=== PATIENT | male | born 1945 | race Native Hawaiian/Other Pacific Islander ===

== ENCOUNTER 2016-07-23 20:12 | Inpatient (IN) | payer OTHER ==
[2016-07-23 20:18] VITALS: BP 173/82; PULSE 71; RESP 16; TEMP 98.2; O2SAT 99
[2016-07-23] MEDS ORDERED: SODIUM CHLORIDE 0.9% FLUSH 5 ML FLUSH IV FLUSH PRN (21:00)
[2016-07-23] MEDS ORDERED: CLOP75TA PO (21:04)
[2016-07-23] MEDS ORDERED: DONE10TA7 PO (21:04)
[2016-07-23] MEDS ORDERED: BISO5TAB5 PO (21:04)
[2016-07-23] MEDS ORDERED: ATOR20TA15 PO (21:04)
[2016-07-23] MEDS ORDERED: METF500T PO (21:04)
[2016-07-23] MEDS ORDERED: TAMS0.4C4 PO (21:04)
[2016-07-23] MEDS ORDERED: DOXA1TAB34 PO (21:04)
[2016-07-23] MEDS ORDERED: MEMA1TAB2 PO (21:04)
[2016-07-23 21:22] LABS: AUTOMATED NEUTROPHIL # 2.7 TH/MM3 (1.8-7.7); BASOPHIL # 0.1 TH/MM3 (0-0.2); BASOPHIL % 1.1 % (0.0-2.0); EOSINOPHIL # 0.2 TH/MM3 (0-0.4); HEMATOCRIT 39.2 % (39.0-51.0); HEMO FLAGS DIFF FINAL; LYMPH % 28.8 % (9.0-44.0); LYMPHOCYTE # 1.4 TH/MM3 (1.0-4.8); MEAN CELL VOLUME 84.1 FL (80.0-100.0); MEAN CORPUSCULAR HEMOGLOBIN 27.5 PG (27.0-34.0); MEAN CORPUSCULAR HGB CONC 32.7 % (32.0-36.0); MONO % 8.9 % (0.0-8.0); NEUT % 57.2 % (16.0-70.0); PLATELET COUNT 178 TH/MM3 (150-450); RED BLOOD COUNT 4.66 MIL/MM3 (4.50-5.90); RED CELL DISTRIBUTION WIDTH 14.8 % (11.6-17.2); WHITE BLOOD COUNT 4.8 TH/MM3 (4.0-11.0)
--- NOTE | 2016-07-23 21:22 | RADRPT ---
EXAM DATE/TIME: 07/23/2016 21:05 [facility] COMPARISON: No previous studies available for comparison. INDICATIONS : Altered mental status. RADIATION DOSE: 56.35 CTDIvol (mGy) MEDICAL HISTORY : Non-responsive. SURGICAL HISTORY : Non-responsive. ENCOUNTER: Initial ACUITY: 1 day PAIN SCALE: Non-responsive LOCATION: cranial TECHNIQUE: Multiple contiguous axial images were obtained of the head. Using automated exposure control and adj ustment of the mA and/or kV according to patient size, radiation dose was kept as low as reasonably a chievable to obtain optimal diagnostic quality images. FINDINGS: There is marked central and cortical atrophy with dilatation of ventricular and sulcal spaces. There is no parenchymal hemorrhage, acute infarction or mass lesion identified. There are no extra-axial fluid collections appreciated. The posterior fossa is unremarkable with midline fourth ventricle. T he portion of the orbits and paranasal sinuses visualized are unremarkable. CONCLUSION: 1. Cortical atrophy. Chronic white matter ischemic changes. Remote lacunar infarcts in the basal gang shira. Dallin Cordero MD on July 23, 2016 at 21:19 Board Certified Radiologist. This report was verified electronically.
[2016-07-23 21:36] LABS: APTT (PATIENT) 21.2 SEC (24.3-30.1); PROTHROMBIN TIME - PATIENT 11.1 SEC (9.8-11.6)
[2016-07-23 21:48] LABS: ALT (GPT) 29 U/L (12-78); ANION GAP 8 MEQ/L (5-15); AST (GOT) 21 U/L (15-37); BICARBONATE 28.9 MEQ/L (21.0-32.0); BLOOD UREA NITROGEN 14 MG/DL (7-18); CHLORIDE 98 MEQ/L (98-107); GLOMERULAR FILTRATION RATE 60 ML/MIN (>89); SODIUM (NA) 135 MEQ/L (136-145)
[2016-07-23 21:57] LABS: ALKALINE PHOSPHATASE 105 U/L (45-117); TOTAL BILIRUBIN ADULT 0.4 MG/DL (0.2-1.0)
[2016-07-23 21:59] LABS: CREATINE KINASE 63 U/L (39-308)
[2016-07-23] MEDS ORDERED: SODIUM CHLORID 0.9% 500 ML INJ 500 ML IV ONE (22:00)
[2016-07-23 22:16] LABS: BLOOD, URINE NEG (NEG); GLUCOSE,URINE NEG (NEG); KETONE, URINE NEG (NEG); NITRITE,URINE NEG (NEG); PH, URINE 7.5 (5.0-8.5); SQUAMOUS EPITHELIAL CELL URINE <1 /hpf (0-5); URINE COLOR LIGHT-YELLOW (YELLW/STRAW)
[2016-07-23 22:17] LABS: COMMENT (UR) CATH-CULT NOT IND; CULTURE IF INDICATED CATH CULTURE NOT IND
--- NOTE | 2016-07-23 22:27 | RADRPT ---
EXAM DATE/TIME: 07/23/2016 21:13 [facility] COMPARISON: No previous studies available for comparison. INDICATIONS : Syncopal epiosode. MEDICAL HISTORY : None. SURGICAL HISTORY : None. ENCOUNTER: Initial ACUITY: 1 day PAIN SCORE: Non-responsive. LOCATION: chest FINDINGS: A single view of the chest demonstrates the lungs to be symmetrically aerated without evidence of mas s, infiltrate or effusion. The cardiomediastinal contours are unremarkable except tortuous aorta. O sseous structures are intact. CONCLUSION: 1. Tortuous aorta. No active disease. Dallin Cordero MD on July 23, 2016 at 22:25 Board Certified Radiologist. This report was verified electronically.
--- NOTE | 2016-07-23 23:08 | PD ---
HPI Chief Complaint: Neuro Symptoms/ Deficits Time Seen by Provider: 20:39 Travel History International Travel<30 days: No Contact w/Intl Traveler<30days: No Traveled to known affect area: No History of Present Illness HPI Patient is a 71-year-old male who is brought in by his friend due to altered mental status. Per friend, he has had slurred speech since last night as well as increasing memory difficulties for the past few days. Also reports some issues with walking and incontinence recently. He is Vietnamese only speaking, history is obtained through his friend and transport technician. He says he was not feeling well earlier today. He is unable to really express what was bothering him. He does deny any pain. He denies any headache. He denies any chest pain or shortness of breath. PFSH Past Medical History High Cholesterol: Yes Cerebrovascular Accident: Yes Dementia: Yes Diabetes: Yes Patient Takes Glucophage: Yes (07/23/16) Hypertension: Yes Influenza Vaccination: No Past Surgical History Coronary Stent: Yes Social History Alcohol Use: No Tobacco Use: No Substance Use: No Allergies-Medications (Allergen,Severity, Reaction): Coded Allergies: No Known Allergies (Unverified , 07/23/16) Reported Meds & Prescriptions Reported Meds & Active Scripts Active Reported Clopidogrel (Clopidogrel Bisulfate) 75 Mg Tab 75 Mg PO DAILY Atorvastatin (Atorvastatin Calcium) 20 Mg Tab 20 Mg PO HS Metformin (Metformin HCl) 500 Mg Tab 500 Mg PO BIDPC With meals Tamsulosin (Tamsulosin HCl) 0.4 Mg Cap 0.4 Mg PO HS Doxazosin (Doxazosin Mesylate) 4 Mg Tab 4 Mg PO DAILY Donepezil 10 Mg Tab 10 Mg PO HS Bisoprolol (Bisoprolol Fumarate) 5 Mg Tab 5 Mg PO DAILY Memantine 10 Mg Tab 10 Mg PO BID Review of Systems Except as stated in HPI: all other systems reviewed are Neg General / Constitutional: No: Fever, Chills HENT: No: Headaches, Lightheadedness Cardiovascular: No: Chest Pain or Discomfort Respiratory: No: Shortness of Breath Gastrointestinal: No: Nausea, Vomiting Musculoskeletal: No: Pain Skin: No Change in Pigmentation Neurologic: Positive: Change in Mentation, Slurred Speech Physical Exam Narrative GENERAL: Awake and alert, in no acute distress. SKIN: Focused skin assessment warm/dry. HEAD: Atraumatic. Normocephalic. EYES: Pupils equal and round. No scleral icterus. ENT: Mucous membranes pink and moist. NECK: Trachea midline. No JVD. CARDIOVASCULAR: Regular rate and rhythm. No murmur appreciated. RESPIRATORY: No accessory muscle use. Clear to auscultation. Breath sounds equal bilaterally. GASTROINTESTINAL: Abdomen soft, non-tender, nondistended. MUSCULOSKELETAL: No obvious deformities. No clubbing. No cyanosis. No edema. NEUROLOGICAL: Awake and alert. No obvious cranial nerve deficits. Motor grossly within normal limits. Speech is difficult to assess. PSYCHIATRIC: Appropriate mood and affect; insight and judgment normal. Data Data Last Documented VS Vital Signs Date Time Temp Pulse Resp B/P Pulse Ox O2 Delivery O2 Flow Rate FiO2 07/23/16 20:18 98.2 71 16 173/82 99 Room Air Orders Electrocardiogram (07/23/16 20:50) Ammonia (07/23/16 20:50) Complete Blood Count With Diff (07/23/16 20:50) Comprehensive Metabolic Panel (07/23/16 20:50) Creatine Kinase (Cpk) (07/23/16 20:50) Prothrombin Time / Inr (Pt) (07/23/16 20:50) Act Partial Throm Time (Ptt) (07/23/16 20:50) Troponin I (07/23/16 20:50) Thyroid Stimulating Hormone (07/23/16 20:50) Urinalysis - C+S If Indicated (07/23/16 20:50) Ua Includes Microscopic (07/23/16 20:50) Chest, Single Ap (07/23/16 20:50) Ct Brain W/O Iv Contrast(Rout) (07/23/16 20:50) Blood Glucose (07/23/16 20:50) Ecg Monitoring (07/23/16 20:50) Iv Access Insert/Monitor (07/23/16 20:50) Oximetry (07/23/16 20:50) Sodium Chloride 0.9% Flush (Ns Flush) (07/23/16 21:00) Sodium Chlorid 0.9% 500 Ml Inj (Ns 500 M (07/23/16 22:00) Admit Order (Ed Use Only) (07/23/16 ) Labs Laboratory Tests Test 07/23/16 07/23/16 21:00 21:40 White Blood Count 4.8 TH/MM3 Red Blood Count 4.66 MIL/MM3 Hemoglobin 12.8 GM/DL Hematocrit 39.2 % Mean Corpuscular Volume 84.1 FL Mean Corpuscular Hemoglobin 27.5 PG Mean Corpuscular Hemoglobin 32.7 % Concent Red Cell Distribution Width 14.8 % Platelet Count 178 TH/MM3 Mean Platelet Volume 8.8 FL Neutrophils (%) (Auto) 57.2 % Lymphocytes (%) (Auto) 28.8 % Monocytes (%) (Auto) 8.9 % Eosinophils (%) (Auto) 4.0 % Basophils (%) (Auto) 1.1 % Neutrophils # (Auto) 2.7 TH/MM3 Lymphocytes # (Auto) 1.4 TH/MM3 Monocytes # (Auto) 0.4 TH/MM3 Eosinophils # (Auto) 0.2 TH/MM3 Basophils # (Auto) 0.1 TH/MM3 CBC Comment DIFF FINAL Differential Comment Prothrombin Time 11.1 SEC Prothromb Time International 1.0 RATIO Ratio Activated Partial 21.2 SEC Thromboplast Time Sodium Level 135 MEQ/L Potassium Level 4.0 MEQ/L Chloride Level 98 MEQ/L Carbon Dioxide Level 28.9 MEQ/L Anion Gap 8 MEQ/L Blood Urea Nitrogen 14 MG/DL Creatinine 1.19 MG/DL Estimat Glomerular Filtration 60 ML/MIN Rate Random Glucose 140 MG/DL Calcium Level 10.2 MG/DL Total Bilirubin 0.4 MG/DL Aspartate Amino Transf 21 U/L (AST/SGOT) Alanine Aminotransferase 29 U/L (ALT/SGPT) Alkaline Phosphatase 105 U/L Ammonia 20 MCMOL/L Total Creatine Kinase 63 U/L Troponin I LESS THAN 0.02 NG/ML Total Protein 7.8 GM/DL Albumin 3.5 GM/DL Thyroid Stimulating Hormone 3.280 uIU/ML 3rd Gen Urine Color LIGHT-YELLOW Urine Turbidity CLEAR Urine pH 7.5 Urine Specific [place] 1.006 Urine Protein NEG mg/dL Urine Glucose (UA) NEG mg/dL Urine Ketones NEG mg/dL Urine Occult Blood NEG Urine Nitrite NEG Urine Bilirubin NEG Urine Urobilinogen LESS THAN 2.0 MG/DL Urine Leukocyte Esterase NEG Urine RBC LESS THAN 1 /hpf Urine Squamous Epithelial <1 /hpf Cells Microscopic Urinalysis Comment CATH-CULT NOT IND MDM Medical Decision Making Medical Screen Exam Complete: Yes Emergency Medical Condition: Yes Differential Diagnosis Sepsis versus stroke versus electrolyte abnormality versus dementia Narrative Course Patient is a 71-year-old male brought in by his friend due to concern for worsening mental status. He is oriented to person only. Exam shows no other acute abnormalities. IV established, labs sent. Labs show a calcium of 10.2, no other abnormalities. Patient given IV fluids. CT head shows evidence of prior strokes. No acute findings. Chest x-ray shows no evidence of pneumonia. Urinalysis is negative for UTI. Patient admitted for management of altered mental status, versus stroke. Diagnosis Primary Impression: Altered mental status Qualified Code: R41.82 - Altered mental status, unspecified altered mental status type Admitting Information Admitting Physician Requests: Admit Condition: Stable Esperanza Stahl MD Jul 23, 2016 23:08
[2016-07-23 23:59] VITALS: BP 175/87
[2016-07-24] VITALS (9 sets, daily range): BP systolic 119–175; BP diastolic 59–96; PULSE 63–70; RESP 16–19; TEMP 96.6–98.9; O2SAT 96–99
[2016-07-24] MEDS ORDERED: cloNIDine HCL 0.1 MG TAB PO PRN (00:30)
[2016-07-24] MEDS: INSULIN ASPART SUPPLEMENTAL SCALE SQ SCH ×4 (06:33→19:53)
[2016-07-24] MEDS: DOXAZOSIN MESYLATE 4 MG TAB PO SCH (08:39)
[2016-07-24] MEDS: BISOPROLOL FUMARATE 5 MG TAB PO SCH (08:39)
[2016-07-24] MEDS: MEMANTINE HCL 10 MG TAB PO SCH ×2 (08:39→19:53)
[2016-07-24] MEDS ORDERED: ASPIRIN 325 MG TAB PO SCH (09:00)
[2016-07-24] MEDS ORDERED: CLOPIDOGREL 75 MG TAB PO SCH (09:00)
--- NOTE | 2016-07-24 09:43 | RADRPT ---
EXAM DATE/TIME: 07/24/2016 08:52 [facility] COMPARISON: No previous studies available for comparison. INDICATIONS : Altered mental status. MEDICAL HISTORY : Hypertension. Diabetes mellitus type 2. SURGICAL HISTORY : None. ENCOUNTER: Initial ACUITY: 1 day PAIN SCORE: 0/10 LOCATION: Cranial TECHNIQUE: Multiplanar, multisequence MRI of the brain was performed without contrast. FINDINGS: There is marked central and cortical atrophy with dilatation of ventricular and sulcal spaces. There is no restricted diffusion. There are no extra-axial fluid collections appreciated. Marked pe riventricular white matter changes are noted with lacunar infarcts in the basal ganglia bilaterally. Ischemic changes extend into the posterior fossa where there is lacunar infarct in the cerebellar ped uncle on the right as well as the right brachium pontis. Cerebellar atrophy is noted as well. CONCLUSION: Marked central and cortical atrophy with periventricular white matter changes. There is no restricte d diffusion to suggest an acute ischemic event. There are multiple punctate areas of hemosiderin see n on the susceptibility weighted images. This can be seen with small old hemorrhagic lacunar infarct s as well as congophilic angiopathy. Federico Alexander MD FACR on July 24, 2016 at 9:25 Board Certified Radiologist. This report was verified electronically.
[2016-07-24 10:31] LABS: ANION GAP 11 MEQ/L (5-15); AST (GOT) 17 U/L (15-37); BLOOD UREA NITROGEN 12 MG/DL (7-18); CHLORIDE 104 MEQ/L (98-107); GLOMERULAR FILTRATION RATE 79 ML/MIN (>89); POTASSIUM 3.6 MEQ/L (3.5-5.1); SODIUM (NA) 140 MEQ/L (136-145)
[2016-07-24 10:58] LABS: ALKALINE PHOSPHATASE 100 U/L (45-117); ALT (GPT) 26 U/L (12-78); TOTAL BILIRUBIN ADULT 0.6 MG/DL (0.2-1.0)
--- NOTE | 2016-07-24 11:35 | RADRPT ---
EXAM DATE/TIME: 07/24/2016 09:54 [facility] COMPARISON: No previous studies available for comparison. INDICATIONS : Neuro deficits. MEDICAL HISTORY : Dementia. Hypercholesterolemia. Hypertension. CVA. Enlarged prostate. Diabetes. SURGICAL HISTORY : Coronary artery stent. Cataract surgery. ENCOUNTER: Initial ACUITY: 1 day PAIN SCORE: 0/10 LOCATION: Bilateral neck PEAK SYSTOLIC VELOCITIES (cm/sec): ICA/CCA RATIO: Right: 1.2 Left: 1.0 ICA: Right: 61 Left: 56 CCA: Right: 53 Left: 57 ECA: Right: 49 Left: 43 VERTEBRAL: Right: 24 antegrade Left: 42 antegrade Elevated flow velocities and ICA/CCA ratios have been found to correlate with increased degrees of vessel stenosis, calculated as percentage of diameter relative to a normal segment of distal ICA/CCA FINDINGS: RIGHT CAROTID: No significant stenosis is visualized. The waveforms are within normal limits. LEFT CAROTID: No significant stenosis is visualized. The waveforms are within normal limits. VERTEBRAL ARTERIES: Antegrade flow is seen in both vertebral arteries. MISCELLANEOUS: None. CONCLUSION: Negative for hemodynamically significant stenosis. Federico Alexander MD FACR on July 24, 2016 at 11:33 Board Certified Radiologist. This report was verified electronically.
--- NOTE | 2016-07-24 15:45 | HHI.HP ---
HPI Service [facility] Hospitalists Primary Care Physician Filemon Lilly, DO Admission Diagnosis Altered mental status Chief Complaint: ams Travel History International Travel<30 Days: No Contact w/Intl Traveler <30 Da: No Traveled to Known Affected Are: No History of Present Illness Patient is a pleasant 71-year-old male originally from [place], who speaks primarily Chinese. History was obtained with the help of a friend who was in the room. I also spoke with his son by phone, who is an ER physician. The patient has a history of dementia and previous CVA. However, family reports that for the last 3-4 months he has had a deterioration in his gait. His gait starts normal and then worsens to a shuffle at times. He has also been falling frequently at home. He also has been experiencing incontinence of urine and feces for the last several days. There has also been a worsening of his mentation. Per family, patient has had decreased appetite and weight loss in the last 6 months with his weight decreasing from 165 pounds to now 148 pounds. Son is worried about the possibility of normal pressure hydrocephalus. Review of Systems ROS Limitations: Language Barrier Constitutional: DENIES: Diaphoretic episodes, Fatigue, Fever, Weight gain, Weight loss, Chills, Dizziness, Change in appetite, Night Sweats Endocrine: DENIES: Heat/cold intolerance, Polydipsia, Polyuria, Polyphagia Eyes: DENIES: Blurred vision, Diplopia, Eye inflammation, Eye pain, Vision loss , Photosensitivity, Double Vision Ears, nose, mouth, throat: DENIES: Tinnitus, Hearing loss, Vertigo, Nasal discharge, Oral lesions, Throat pain, Hoarseness, Ear Pain, Running Nose, Epistaxis, Sinus Pain, Toothache, Odynophagia Respiratory: DENIES: Apneas, Cough, Snoring, Wheezing, Hemoptysis, Sputum production, Shortness of breath Cardiovascular: DENIES: Chest pain, Palpitations, Syncope, Dyspnea on Exertion , PND, Lower Extremity Edema, Orthopnea, Claudication Gastrointestinal: DENIES: Abdominal pain, Black stools, Bloody stools, BRB per rectum, Constipation, Diarrhea, GERD, Nausea, Reflux, Vomiting, Difficulty Swallowing, Anorexia Genitourinary: DENIES: Urgency, Hematuria, Dysuria, Nocturia Integumentary: DENIES: Abnormal pigmentation, Nail changes, Pruritus, Rash Hematologic/lymphatic: DENIES: Bruising, Lymphadenopathy Immunologic/allergic: DENIES: Eczema, Urticaria Neurologic: COMPLAINS OF: Abnormal gait, Poor Balance, DENIES: Headache, Localized weakness, Paresthesias, Seizures, Speech Problems, Tremor Psychiatric: DENIES: Anxiety, Confusion, Mood changes, Depression, Hallucinations, Agitation, Suicidal Ideation, Homicidal Ideation, Delusions, History of Bipolar, History of Schizophrenia Past Family Social History Past Medical History 1) hypertension 2) diabetes, type II 3) history of CVA - Per family 3 episodes in the past 1990, 2003, 2015 4) dementia, patient is on both Namenda and Aricept 5) BPH Past Surgical History - Bilateral cataract surgery Reported Medications Reported Meds & Active Scripts Active Reported Clopidogrel (Clopidogrel Bisulfate) 75 Mg Tab 75 Mg PO DAILY Atorvastatin (Atorvastatin Calcium) 20 Mg Tab 20 Mg PO HS Metformin (Metformin HCl) 500 Mg Tab 500 Mg PO BIDPC With meals Tamsulosin (Tamsulosin HCl) 0.4 Mg Cap 0.4 Mg PO HS Doxazosin (Doxazosin Mesylate) 4 Mg Tab 4 Mg PO DAILY Donepezil 10 Mg Tab 10 Mg PO HS Bisoprolol (Bisoprolol Fumarate) 5 Mg Tab 5 Mg PO DAILY Memantine 10 Mg Tab 10 Mg PO BID Allergies: Coded Allergies: No Known Allergies (Unverified , 07/23/16) Family History Noncontributory Social History - Originally from [place] - Primary language is Chinese - Never a smoker - No alcohol use - No illicit street drugs Physical Exam Vital Signs Vital Signs Date Time Temp Pulse Resp B/P Pulse Ox O2 Delivery O2 Flow Rate FiO2 07/24/16 12:56 98.9 67 19 127/70 99 07/24/16 12:15 69 07/24/16 08:32 96.6 69 17 119/59 96 07/24/16 04:00 97.0 66 18 131/75 98 07/24/16 00:35 97.5 63 18 175/96 97 07/24/16 00:00 97.7 64 16 98 07/23/16 23:59 175/87 07/23/16 20:18 98.2 71 16 173/82 99 Room Air Physical Exam GENERAL: This is a well-nourished, well-developed patient, in no apparent distress. SKIN: No rashes, ecchymoses or lesions. Cool and dry. HEAD: Atraumatic. Normocephalic. No temporal or scalp tenderness. EYES: Pupils equal round and reactive. Extraocular motions intact. No scleral icterus. No injection or drainage. ENT: Nose without bleeding, purulent drainage or septal hematoma. Throat without erythema, tonsillar hypertrophy or exudate. Uvula midline. Airway patent. NECK: Trachea midline. No JVD or lymphadenopathy. Supple, nontender, no meningeal signs. CARDIOVASCULAR: Regular rate and rhythm without murmurs, gallops, or rubs. RESPIRATORY: Clear to auscultation. Breath sounds equal bilaterally. No wheezes , rales, or rhonchi. GASTROINTESTINAL: Abdomen soft, non-tender, nondistended. No hepato-splenomegaly , or palpable masses. No guarding. MUSCULOSKELETAL: Extremities without clubbing, cyanosis, or edema. No joint tenderness, effusion, or edema noted. No calf tenderness. Negative Homans sign bilaterally. NEUROLOGICAL: Awake and alert. Cranial nerves II through XII intact. Motor and sensory grossly within normal limits. Five out of 5 muscle strength in all muscle groups. Normal speech. Laboratory Laboratory Tests Test 07/23/16 07/23/16 07/24/16 21:00 21:40 09:49 White Blood Count 4.8 Red Blood Count 4.66 Hemoglobin 12.8 Hematocrit 39.2 Mean Corpuscular Volume 84.1 Mean Corpuscular Hemoglobin 27.5 Mean Corpuscular Hemoglobin 32.7 Concent Red Cell Distribution Width 14.8 Platelet Count 178 Mean Platelet Volume 8.8 Neutrophils (%) (Auto) 57.2 Lymphocytes (%) (Auto) 28.8 Monocytes (%) (Auto) 8.9 Eosinophils (%) (Auto) 4.0 Basophils (%) (Auto) 1.1 Neutrophils # (Auto) 2.7 Lymphocytes # (Auto) 1.4 Monocytes # (Auto) 0.4 Eosinophils # (Auto) 0.2 Basophils # (Auto) 0.1 CBC Comment DIFF FINAL Differential Comment Prothrombin Time 11.1 Prothromb Time International 1.0 Ratio Activated Partial 21.2 Thromboplast Time Sodium Level 135 140 Potassium Level 4.0 3.6 Chloride Level 98 104 Carbon Dioxide Level 28.9 25.0 Anion Gap 8 11 Blood Urea Nitrogen 14 12 Creatinine 1.19 0.94 Estimat Glomerular Filtration 60 79 Rate Random Glucose 140 97 Calcium Level 10.2 9.6 Total Bilirubin 0.4 0.6 Aspartate Amino Transf 21 17 (AST/SGOT) Alanine Aminotransferase 29 26 (ALT/SGPT) Alkaline Phosphatase 105 100 Ammonia 20 Total Creatine Kinase 63 Troponin I LESS THAN 0.02 Total Protein 7.8 7.4 Albumin 3.5 3.4 Thyroid Stimulating Hormone 3.280 3rd Gen Urine Color LIGHT-YELLOW Urine Turbidity CLEAR Urine pH 7.5 Urine Specific [place] 1.006 Urine Protein NEG Urine Glucose (UA) NEG Urine Ketones NEG Urine Occult Blood NEG Urine Nitrite NEG Urine Bilirubin NEG Urine Urobilinogen LESS THAN 2.0 Urine Leukocyte Esterase NEG Urine RBC LESS THAN 1 Urine Squamous Epithelial <1 Cells Microscopic Urinalysis Comment CATH-CULT NOT IND Vitamin B12 Level 1813 Result Diagram: 07/23/16 2100 07/24/16 0949 Imaging Last Impressions Carotid Artery Ultrasound 07/24/16 0000 Signed Impressions: Service Date/Time: Sunday, July 24, 2016 09:54 - CONCLUSION: Negative for hemodynamically significant stenosis. Federico Alexander MD FACR Brain MRI 07/24/16 0000 Signed Impressions: Service Date/Time: Sunday, July 24, 2016 08:52 - CONCLUSION: Marked central and cortical atrophy with periventricular white matter changes. There is no restricted diffusion to suggest an acute ischemic event. There are multiple punctate areas of hemosiderin seen on the susceptibility weighted images. This can be seen with small old hemorrhagic lacunar infarcts as well as congophilic angiopathy. Federico Alexander MD FACR Head CT [id number]/23/[id number] Signed Impressions: Service Date/Time: Saturday, July 23, 2016 21:05 - CONCLUSION: 1. Cortical atrophy. Chronic white matter ischemic changes. Remote lacunar infarcts in the basal ganglia. Dallin Cordero MD Chest X-Ray [id number]/23/[id number] Signed Impressions: Service Date/Time: Saturday, July 23, 2016 21:13 - CONCLUSION: 1. Tortuous aorta. No active disease. Dallin Cordero MD Septic Shock Reassessment Heart: Regular rate and rhythm Lungs: Clear Skin: Warm Peripheral Pulses: Bounding Right Radial Bounding Left Radial Bounding Right Popliteal Bounding Left Popliteal Bounding Right Dorsalis Pedis Bounding Left Dorsalis Pedis Bounding Right Posterior Tibial Bounding Left Posterior Tibial Capillary Refill: Brisk Assessment and Plan Problem List: (1) Altered mental status Status: Acute Plan: - comgmt with Neurology - concern of possible NPH - Patient has had a decline in his gait in the last 3-4 months - Patient has had incontinence of urine and feces in the last several days - Patient has had a worsening in his mentation - MRI brain (29576) - atrophy - Neurology felt that ventricles are prominent - Case d/w Neurosurgery Service. Dr. Amin will consult - consider placement of lumbar drain 07/26/16 - TSH WNL - continue namenda & aricept - supportive care - pt is on ASA & plavix. Will hold both for now - DVT prophylaxis with SCDs (2) Dementia Status: Acute Plan: - see above (3) HTN (hypertension) Status: Chronic Plan: - stable - zebeta (4) BPH (benign prostatic hyperplasia) Status: Chronic Plan: - flomax, cardura (5) DM2 (diabetes mellitus, type 2) Status: Chronic Plan: - SSI Physician Certification 2 Midnight Certification Type: Admission for Inpatient Services Order for Inpatient Services The services are ordered in accordance with Medicare regulations or non- Medicare payer requirements, as applicable. In the case of services not specified as inpatient-only, they are appropriately provided as inpatient services in accordance with the 2-midnight benchmark. Estimated LOS (days): 3 3 days is the estimated time the patient will need to remain in the hospital, assuming treatment plan goals are met and no additional complications. Post-Hospital Plan: Not yet determined Problem Qualifiers (1) Altered mental status: Qualified Code: R41.82 - Altered mental status, unspecified altered mental status type (2) Dementia: Qualified Code: F03.90 - Dementia without behavioral disturbance, unspecified dementia type (3) HTN (hypertension): Qualified Code: I10 - Essential hypertension (4) BPH (benign prostatic hyperplasia): Qualified Code: N40.0 - Benign prostatic hyperplasia, presence of lower urinary tract symptoms unspecified (5) DM2 (diabetes mellitus, type 2): Qualified Code: E11.8 - Type 2 diabetes mellitus with complication, without long-term current use of insulin Oseas Watson DO Jul 24, 2016 15:45
[2016-07-24 16:00] LABS: FREE T4 1.25 NG/DL (0.76-1.46)
--- NOTE | 2016-07-24 18:02 | MB ---
cc: SARAHY MENDEZ DATE OF CONSULTATION 07/24/16 REASON FOR CONSULTATION Gait ataxia, mental status change. HISTORY OF PRESENT ILLNESS Mr. Farmer is a 71 year old male who speaks Macedonian. The history is obtained from the chart and apparently he has had a long history of dementia type symptoms with loss of memory, but a 6-month history of progressive gait difficulty. His family relates at times he tends to develop a very shuffling type of as though his feet are stuck to the floor. More recently, he has developed urinary incontinence. NEUROLOGIC EXAMINATION The patient is alert. I cannot assess higher cortical functions due to the language barrier. Cranial nerves are grossly intact. There is no facial droop. The pupils are equal. The extraocular movements are intact. On motor exam, he has 5/5 strength in both upper and lower extremities. He has normal tone. I do not detect any cogwheel rigidity. He does not have any tremor. On assessing his gait, he has an ataxic type of gait using a walker. At one point in his assessment, he began taking very small steps and almost magnetic type of gait. IMAGING STUDIES I did review the MRI of the brain which shows atrophy globally, but there does appear to be ventricular enlargement slightly out of proportion to the atrophy particularly in the occipital __ of the lateral ventricles. He has ischemic demyelinization as well at present. IMPRESSION The patient has a triad which suggests the possibility of normal-pressure hydrocephalus. He does have ventriculomegaly on the MRI. This could be related simply to atrophy, however, given the symptomatology of dementia, gait difficulties and urinary incontinence, would recommend neurosurgical evaluation to see if he would be a candidate for a lumbar drain to assess as to whether or not that would improve his symptoms. MD MARIO Serna/ /3:24 PM /5:52 PM
[2016-07-24] MEDS: ATORVASTATIN 20 MG TAB PO SCH (19:52)
[2016-07-24] MEDS: DONEPEZIL HCL 5 MG TAB PO SCH (19:52)
[2016-07-24] MEDS: TAMSULOSIN HCL 0.4 MG CAP PO SCH (19:59)
[2016-07-25] VITALS (8 sets, daily range): BP systolic 133–147; BP diastolic 67–83; PULSE 60–71; RESP 16–18; TEMP 95.9–97.5; O2SAT 97–99
[2016-07-25] MEDS: INSULIN ASPART SUPPLEMENTAL SCALE SQ SCH ×4 (06:14→20:07)
[2016-07-25] MEDS: BISOPROLOL FUMARATE 5 MG TAB PO SCH (08:33)
[2016-07-25] MEDS: DOXAZOSIN MESYLATE 4 MG TAB PO SCH (08:33)
[2016-07-25] MEDS: MEMANTINE HCL 10 MG TAB PO SCH ×2 (08:33→20:03)
--- NOTE | 2016-07-25 10:00 | EKG ---
Date Performed: 07/23/2016 Time Performed: 21:32:19 PTAGE: 71 years EKG: Sinus rhythm MODERATE INTRAVENTRICULAR CONDUCTION DELAY BORDERLINE ECG NO PREVIOUS TRACING DOCTOR: Jorge L Veliz Interpretating Date/Time 07/25/2016 09:48:03
--- NOTE | 2016-07-25 13:06 | MB ---
cc: KATIE MONTIEL ROHIT K. M.D. SCOTT, JAMES A. M.D. DATE OF CONSULTATION: 07/25/2016 REASON FOR CONSULTATION: Possible normal pressure hydrocephalus. HISTORY OF PRESENT ILLNESS: The patient is a 71 year-old [place]ian gentleman who was admitted on 07/23/2016 after he presented to the emergency room with complaints of worsening memory loss as well as slurred speech, incontinence and unsteadiness. 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 He has a suffered from the several strokes in the past which have affected his speech and his gait. Over the last two years his memory loss has worsened with progressive dementia as well as unsteadiness and shuffling in his gait and urinary incontinence. The patient denies any headaches, nausea or vomiting, or any double vision or blurred vision. He was admitted to the medical service and neurology consultation also obtained as well as workup with CT and MRI scan of the brain along with carotid ultrasound. Carotid ultrasound is negative for any stenosis and CT and MRI scan of brain reveal moderate ventriculomegaly with periventricular white matter changes as well as multiple punctate areas of T2 weighted small vessel ischemic changes and bihemispheric white matter. Neurosurgery has been consulted for evaluation for normal pressure hydrocephalus and consideration of a temporary lumbar spinal drain and placement. PAST MEDICAL HISTORY 1. Multiple strokes with subsequent unsteadiness in his gait and slurred speech. 2. Diabetes. 3. Hypertension. 4. Progressive dementia 5. Benign prostatic hypertrophy. 6. Bilateral cataract removal. MEDICATIONS PRIOR TO ADMISSION 1. Plavix 75 mg daily. 2. Atorvastatin 20 mg q.h.s. 3. Bisoprolol 5 mg daily. 4. Donepezil 10 milligrams q hs. 5. Doxazosin 4 milligrams daily. 6. Metformin 500 milligrams b.i.d. 7. Flomax 0.4 milligrams q hs. 8. Memantine 10 mg b.i.d. ALLERGIES: NO KNOWN DRUG ALLERGIES. SOCIAL HISTORY He is and his is here with him, apparently has a son who is an emergency room physician in [place], although currently he is in [place] but relates he will be back in the next day or so. No alcohol or tobacco use. LABORATORY FINDINGS White blood cell count 4.8, hemoglobin 12.8, platelet count of 178, PT 11.1, INR 1.0, PTT 21.2, sodium 140, potassium 3.6, BUN 12, creatinine 0.94, glucose 97. Urinalysis is negative. REVIEW OF SYSTEMS: No headaches. No fevers, no chills. No history of easy bleeding or bruising. Denies any double vision or blurred vision. Denies any chest pain or shortness of breath, denies nausea or vomiting or any abdominal pain. Complains of poor appetite and weight loss about 20 pounds over the last 6 months. Complains of unsteadiness in his gait. Complains of incontinence. Complains of memory loss. Complains of difficulty with expression in his speech. Complains of generalized weakness. PHYSICAL EXAMINATION: Vital signs: Temperature 96.6, pulse 70, respiratory 18, blood pressure 133/81, oxygen saturation 97% on room air. Head: Normocephalic, atraumatic. Neck is supple. Chest: Clear to auscultation bilaterally. Heart: Regular rate rhythm, normal S1-S2. Abdomen: Soft, nontender. Positive bowel sounds. Extremities: No cyanosis or edema. Neurologic: He is awake, alert. Pupils equal, reactive. Extra muscles intact. Face is symmetric, tongue is midline. He moves all four extremities with 5/5 strength. Negative Babinski. He has wide based magnetic and shuffled gait which requires some assistance to ambulate. IMPRESSION: 1. Moderate ventriculomegaly with periventricular white matter changes along with the clinical scenario which correlates with normal pressure hydrocephalus. Symptoms have been progressive over the past two years. 2. Multiple small vessel ischemic changes of lacunar infarcts and history of previous strokes on chronic Plavix therapy. 3. Diabetes mellitus 4. Hypertension. PLAN I concur with a temporary lumbar spinal drain placement which can be undertaken by radiology special procedures. Obviously this can only be undertaken once his Plavix has been held for 5-7 days to reduce any risk for epidural hemorrhage from the spinal drain placement. There is increased risk for stroke with withholding of antiplatelet therapy, which was related to the patient and his . They would like to discuss this with their son once he returns from [place] over the next day or so, and if they elect to proceed for normal pressure hydrocephalus workup with temporary lumbar spinal drain, then this can be undertaken when the radiologist feels it is safe to proceed. In he meantime, would recommend physical therapy to prevent further deconditioning. MD KIMMY Wood/ADENIKE /12:11 PM /12:52 PM
--- NOTE | 2016-07-25 15:40 | HHI.PR ---
Subjective Remarks No new complaints. Pt ambulating in the hallways with assistance from family. Objective Vitals Vital Signs Date Time Temp Pulse Resp B/P Pulse Ox O2 Delivery O2 Flow Rate FiO2 07/25/16 12:00 97.1 62 18 141/82 99 07/25/16 08:07 96.6 70 18 133/81 97 07/25/16 08:00 60 07/25/16 05:00 97.3 71 18 142/67 98 07/25/16 00:40 97.5 68 16 147/73 98 07/24/16 23:15 67 07/24/16 20:22 96.9 63 16 161/82 98 07/24/16 16:17 98.7 70 18 144/80 99 07/24/16 07/24/16 07/25/16 15:00 23:00 07:00 Intake Total 480 ml Balance 480 ml Intake Oral 480 ml # Voids 2 3 # Bowel Movements 0 0 Result Diagram: 07/23/16 2100 07/24/16 0949 Imaging Last Impressions Carotid Artery Ultrasound 07/24/16 0000 Signed Impressions: Service Date/Time: Sunday, July 24, 2016 09:54 - CONCLUSION: Negative for hemodynamically significant stenosis. Federico Alexander MD FACR Brain MRI 07/24/16 0000 Signed Impressions: Service Date/Time: Sunday, July 24, 2016 08:52 - CONCLUSION: Marked central and cortical atrophy with periventricular white matter changes. There is no restricted diffusion to suggest an acute ischemic event. There are multiple punctate areas of hemosiderin seen on the susceptibility weighted images. This can be seen with small old hemorrhagic lacunar infarcts as well as congophilic angiopathy. Federico Alexander MD FACR Head CT 07/23/162049 Signed Impressions: Service Date/Time: Saturday, July 23, 2016 21:05 - CONCLUSION: 1. Cortical atrophy. Chronic white matter ischemic changes. Remote lacunar infarcts in the basal ganglia. Dallin Cordero MD Chest X-Ray 07/23/162049 Signed Impressions: Service Date/Time: Saturday, July 23, 2016 21:13 - CONCLUSION: 1. Tortuous aorta. No active disease. Dallin Cordero MD Objective Remarks GENERAL: This is a well-nourished, well-developed patient, in no apparent distress. CARDIOVASCULAR: Regular rate and rhythm without murmurs, gallops, or rubs. RESPIRATORY: Clear to auscultation. Breath sounds equal bilaterally. No wheezes , rales, or rhonchi. GASTROINTESTINAL: Abdomen soft, non-tender, nondistended. Normal active bowel sounds MUSCULOSKELETAL: Extremities without clubbing, cyanosis, or edema. NEURO: Alert & Oriented x4 to person, place, time, situation. Moves all ext x4 A/P Problem List: (1) Altered mental status Status: Acute Plan: - comgmt with Neurology & neurosurgery - concern of possible NPH - Patient has had a decline in his gait in the last 3-4 months - Patient has had incontinence of urine and feces in the last several days - Patient has had a worsening in his mentation - MRI brain ([id number]) - atrophy - Neurology felt that ventricles are prominent - consider placement of lumbar drain, once off plavix x 5d - TSH WNL - continue namenda & aricept - supportive care - pt is on ASA & plavix. Will hold both for now - seems reasonable to discharge pt to SNF 07/26/16 and then bring pt back to hospital once off plavix 5d for placement of lumbar drain 07/29/16 - DVT prophylaxis with SCDs (2) Dementia Status: Acute Plan: - see above (3) HTN (hypertension) Status: Chronic Plan: - stable - zebeta (4) BPH (benign prostatic hyperplasia) Status: Chronic Plan: - flomax, cardura (5) DM2 (diabetes mellitus, type 2) Status: Chronic Plan: - SSI - resume metformin Problem Qualifiers (1) Altered mental status: Qualified Code: R41.82 - Altered mental status, unspecified altered mental status type (2) Dementia: Qualified Code: F03.90 - Dementia without behavioral disturbance, unspecified dementia type (3) HTN (hypertension): Qualified Code: I10 - Essential hypertension (4) BPH (benign prostatic hyperplasia): Qualified Code: N40.0 - Benign prostatic hyperplasia, presence of lower urinary tract symptoms unspecified (5) DM2 (diabetes mellitus, type 2): Qualified Code: E11.8 - Type 2 diabetes mellitus with complication, without long-term current use of insulin Oseas Watson DO Jul 25, 2016 15:40
[2016-07-25] MEDS: metFORMIN HCL 500 MG TAB PO SCH (16:45)
[2016-07-25] MEDS: DONEPEZIL HCL 5 MG TAB PO SCH (20:03)
[2016-07-25] MEDS: ATORVASTATIN 20 MG TAB PO SCH (20:06)
[2016-07-25] MEDS: TAMSULOSIN HCL 0.4 MG CAP PO SCH (20:06)
[2016-07-26] VITALS (7 sets, daily range): BP systolic 114–177; BP diastolic 69–93; PULSE 65–91; RESP 16–18; TEMP 95.5–96.7; O2SAT 96–99
[2016-07-26] MEDS: INSULIN ASPART SUPPLEMENTAL SCALE SQ SCH ×4 (06:39→22:19)
[2016-07-26] MEDS: DOXAZOSIN MESYLATE 4 MG TAB PO SCH (10:02)
[2016-07-26] MEDS: BISOPROLOL FUMARATE 5 MG TAB PO SCH (10:03)
[2016-07-26] MEDS: MEMANTINE HCL 10 MG TAB PO SCH ×2 (10:03→22:17)
[2016-07-26] MEDS: metFORMIN HCL 500 MG TAB PO SCH ×2 (10:04→17:59)
--- NOTE | 2016-07-26 11:24 | HHI.PR ---
Subjective Remarks doing ok. Objective Vitals nad in chair heart reg lung cta abd s/nt ext no edema Vital Signs Date Time Temp Pulse Resp B/P Pulse Ox O2 Delivery O2 Flow Rate FiO2 07/26/16 08:00 96.4 82 17 119/82 99 07/26/16 05:09 96.7 75 16 133/75 99 07/26/16 01:40 66 07/26/16 00:58 96.5 65 18 135/82 96 07/25/16 20:20 96.6 66 18 139/83 97 07/25/16 16:00 95.9 64 17 136/73 98 07/25/16 12:00 97.1 62 18 141/82 99 07/25/16 07/25/16 07/26/16 15:00 23:00 07:00 Intake Total 480 ml Balance 480 ml Intake Oral 480 ml # Voids 2 2 1 Result Diagram: 07/23/16 2100 07/24/16 0949 Imaging Last Impressions Carotid Artery Ultrasound 07/24/16 0000 Signed Impressions: Service Date/Time: Sunday, July 24, 2016 09:54 - CONCLUSION: Negative for hemodynamically significant stenosis. Federico Alexander MD FACR Brain MRI 07/24/16 0000 Signed Impressions: Service Date/Time: Sunday, July 24, 2016 08:52 - CONCLUSION: Marked central and cortical atrophy with periventricular white matter changes. There is no restricted diffusion to suggest an acute ischemic event. There are multiple punctate areas of hemosiderin seen on the susceptibility weighted images. This can be seen with small old hemorrhagic lacunar infarcts as well as congophilic angiopathy. Federico Alexander MD FACR Head CT 07/23/162049 Signed Impressions: Service Date/Time: Saturday, July 23, 2016 21:05 - CONCLUSION: 1. Cortical atrophy. Chronic white matter ischemic changes. Remote lacunar infarcts in the basal ganglia. Dallin Cordero MD Chest X-Ray 07/23/162049 Signed Impressions: Service Date/Time: Saturday, July 23, 2016 21:13 - CONCLUSION: 1. Tortuous aorta. No active disease. Dallin Cordero MD A/P Problem List: (1) Altered mental status Status: Acute Plan: - concern of possible NPH - Patient has had a decline in his gait in the last 3-4 months - Patient has had incontinence of urine and feces in the last several days - Patient has had a worsening in his mentation - MRI brain ([id number]) - atrophy - Neurology felt that ventricles are prominent - plan is for lumbar drain on Tuesday...trying to decide and coordinate d/c to snf and readmit vs keeping here for the procedure..... - continue namenda & aricept - supportive care - DVT prophylaxis with SCDs (2) Dementia Status: Acute Plan: - see above (3) HTN (hypertension) Status: Chronic Plan: - stable - zebeta (4) BPH (benign prostatic hyperplasia) Status: Chronic Plan: - flomax, cardura (5) DM2 (diabetes mellitus, type 2) Status: Chronic Plan: - SSI - resume metformin Problem Qualifiers (1) Altered mental status: Qualified Code: R41.82 - Altered mental status, unspecified altered mental status type (2) Dementia: Qualified Code: F03.90 - Dementia without behavioral disturbance, unspecified dementia type (3) HTN (hypertension): Qualified Code: I10 - Essential hypertension (4) BPH (benign prostatic hyperplasia): Qualified Code: N40.0 - Benign prostatic hyperplasia, presence of lower urinary tract symptoms unspecified (5) DM2 (diabetes mellitus, type 2): Qualified Code: E11.8 - Type 2 diabetes mellitus with complication, without long-term current use of insulin Martinez Galindo MD Jul 26, 2016 11:24
[2016-07-26 14:32] LABS: RAPID PLASMA REAGIN SCREEN NON-REACTIVE (NON-REACTVE)
[2016-07-26] MEDS: ATORVASTATIN 20 MG TAB PO SCH (22:17)
[2016-07-26] MEDS: TAMSULOSIN HCL 0.4 MG CAP PO SCH (22:17)
[2016-07-26] MEDS: DONEPEZIL HCL 5 MG TAB PO SCH (22:17)
[2016-07-27] VITALS (7 sets, daily range): BP systolic 104–156; BP diastolic 67–78; PULSE 67–79; RESP 17–19; TEMP 96–97.9; O2SAT 97–100
[2016-07-27] MEDS: INSULIN ASPART SUPPLEMENTAL SCALE SQ SCH ×4 (06:08→21:00)
[2016-07-27] MEDS: MEMANTINE HCL 10 MG TAB PO SCH ×2 (09:39→21:48)
[2016-07-27] MEDS: metFORMIN HCL 500 MG TAB PO SCH ×2 (09:39→17:46)
[2016-07-27] MEDS: BISOPROLOL FUMARATE 5 MG TAB PO SCH (09:39)
[2016-07-27] MEDS: DOXAZOSIN MESYLATE 4 MG TAB PO SCH (09:39)
--- NOTE | 2016-07-27 09:47 | HHI.PR ---
Subjective Remarks no problems overnight. Objective Vitals heart reg lung cta abd s/nt ext no edema Vital Signs Date Time Temp Pulse Resp B/P Pulse Ox O2 Delivery O2 Flow Rate FiO2 07/27/16 08:00 96.0 76 17 135/76 97 07/27/16 06:44 96.4 75 18 132/78 98 07/27/16 00:00 96.2 79 18 156/78 98 07/26/16 20:00 95.8 67 18 177/93 96 07/26/16 16:00 95.5 91 17 171/78 99 07/26/16 12:00 96.3 70 17 114/69 97 07/26/16 07/26/16 07/27/16 15:00 23:00 07:00 Intake Total 600 ml Output Total 800 ml Balance 600 ml -800 ml Intake Oral 600 ml Output Urine Total 800 ml # Voids 4 2 3 # Bowel Movements 0 Result Diagram: 07/23/16 2100 07/24/16 0949 Imaging Last Impressions Carotid Artery Ultrasound 07/24/16 0000 Signed Impressions: Service Date/Time: Sunday, July 24, 2016 09:54 - CONCLUSION: Negative for hemodynamically significant stenosis. Federico Alexander MD FACR Brain MRI 07/24/16 0000 Signed Impressions: Service Date/Time: Sunday, July 24, 2016 08:52 - CONCLUSION: Marked central and cortical atrophy with periventricular white matter changes. There is no restricted diffusion to suggest an acute ischemic event. There are multiple punctate areas of hemosiderin seen on the susceptibility weighted images. This can be seen with small old hemorrhagic lacunar infarcts as well as congophilic angiopathy. Federico Alexander MD FACR Head CT 07/23/162049 Signed Impressions: Service Date/Time: Saturday, July 23, 2016 21:05 - CONCLUSION: 1. Cortical atrophy. Chronic white matter ischemic changes. Remote lacunar infarcts in the basal ganglia. Dallin Cordero MD Chest X-Ray 07/23/162049 Signed Impressions: Service Date/Time: Saturday, July 23, 2016 21:13 - CONCLUSION: 1. Tortuous aorta. No active disease. Dallin Cordero MD A/P Problem List: (1) Altered mental status Status: Acute Plan: - concern of possible NPH - Patient has had a decline in his gait in the last 3-4 months - Patient has had incontinence of urine and feces in the last several days - Patient has had a worsening in his mentation - MRI brain ([id number]) - atrophy - Neurology felt that ventricles are prominent - plan is for lumbar drain on Tuesday... - asa/plavix on hold - family was not interested in d/c to snf and readmit -once drain placed will need to observe for sx improvement over 72hrs. - continue namenda & aricept - supportive care - DVT prophylaxis with SCDs (2) Dementia Status: Acute Plan: - see above (3) HTN (hypertension) Status: Chronic Plan: - stable - zebeta (4) BPH (benign prostatic hyperplasia) Status: Chronic Plan: - flomax, cardura (5) DM2 (diabetes mellitus, type 2) Status: Chronic Plan: - SSI - resume metformin Problem Qualifiers (1) Altered mental status: Qualified Code: R41.82 - Altered mental status, unspecified altered mental status type (2) Dementia: Qualified Code: F03.90 - Dementia without behavioral disturbance, unspecified dementia type (3) HTN (hypertension): Qualified Code: I10 - Essential hypertension (4) BPH (benign prostatic hyperplasia): Qualified Code: N40.0 - Benign prostatic hyperplasia, presence of lower urinary tract symptoms unspecified (5) DM2 (diabetes mellitus, type 2): Qualified Code: E11.8 - Type 2 diabetes mellitus with complication, without long-term current use of insulin Martinez Galindo MD Jul 27, 2016 09:47
[2016-07-27] MEDS: TAMSULOSIN HCL 0.4 MG CAP PO SCH (21:47)
[2016-07-27] MEDS: DONEPEZIL HCL 5 MG TAB PO SCH (21:47)
[2016-07-27] MEDS: ATORVASTATIN 20 MG TAB PO SCH (21:48)
[2016-07-28] VITALS (7 sets, daily range): BP systolic 123–174; BP diastolic 75–84; PULSE 62–84; RESP 15–20; TEMP 95.6–98.2; O2SAT 94–100
[2016-07-28] MEDS: INSULIN ASPART SUPPLEMENTAL SCALE SQ SCH ×4 (06:41→20:26)
--- NOTE | 2016-07-28 08:55 | HHI.PR ---
Subjective Remarks no change. Objective Vitals heart reg lung cta abd s/nt ext no edema Vital Signs Date Time Temp Pulse Resp B/P Pulse Ox O2 Delivery O2 Flow Rate FiO2 07/28/16 05:09 98.2 84 17 135/77 99 07/28/16 00:10 97.6 72 17 136/78 99 07/27/16 21:18 97.9 69 17 139/78 99 07/27/16 20:00 67 07/27/16 17:08 97.4 72 18 128/78 99 07/27/16 12:00 96.6 70 19 104/67 100 07/27/16 07/27/16 07/28/16 15:00 23:00 07:00 Intake Total 360 ml Balance 360 ml Intake Oral 360 ml # Voids 3 4 # Bowel Movements 3 Result Diagram: 07/24/16 0949 Imaging Last Impressions Carotid Artery Ultrasound 07/24/16 0000 Signed Impressions: Service Date/Time: Sunday, July 24, 2016 09:54 - CONCLUSION: Negative for hemodynamically significant stenosis. Federico Alexander MD FACR Brain MRI 07/24/16 0000 Signed Impressions: Service Date/Time: Sunday, July 24, 2016 08:52 - CONCLUSION: Marked central and cortical atrophy with periventricular white matter changes. There is no restricted diffusion to suggest an acute ischemic event. There are multiple punctate areas of hemosiderin seen on the susceptibility weighted images. This can be seen with small old hemorrhagic lacunar infarcts as well as congophilic angiopathy. Federico Alexander MD FACR Head CT 07/23/162049 Signed Impressions: Service Date/Time: Saturday, July 23, 2016 21:05 - CONCLUSION: 1. Cortical atrophy. Chronic white matter ischemic changes. Remote lacunar infarcts in the basal ganglia. Dallin Cordero MD Chest X-Ray 07/23/162049 Signed Impressions: Service Date/Time: Saturday, July 23, 2016 21:13 - CONCLUSION: 1. Tortuous aorta. No active disease. Dallin Cordero MD A/P Problem List: (1) Altered mental status Status: Acute Plan: - concern of possible NPH - Patient has had a decline in his gait in the last 3-4 months - Patient has had incontinence of urine and feces in the last several days - Patient has had a worsening in his mentation - MRI brain ([id number]) - atrophy - Neurology felt that ventricles are prominent - plan is for lumbar drain on Tuesday... - asa/plavix on hold - family was not interested in d/c to snf and readmit -once drain placed will need to observe for sx improvement over 72hrs. - continue namenda & aricept - supportive care - DVT prophylaxis with SCDs (2) Dementia Status: Acute Plan: - see above (3) HTN (hypertension) Status: Chronic Plan: - stable - zebeta (4) BPH (benign prostatic hyperplasia) Status: Chronic Plan: - flomax, cardura (5) DM2 (diabetes mellitus, type 2) Status: Chronic Plan: - SSI - resume metformin Problem Qualifiers (1) Altered mental status: Qualified Code: R41.82 - Altered mental status, unspecified altered mental status type (2) Dementia: Qualified Code: F03.90 - Dementia without behavioral disturbance, unspecified dementia type (3) HTN (hypertension): Qualified Code: I10 - Essential hypertension (4) BPH (benign prostatic hyperplasia): Qualified Code: N40.0 - Benign prostatic hyperplasia, presence of lower urinary tract symptoms unspecified (5) DM2 (diabetes mellitus, type 2): Qualified Code: E11.8 - Type 2 diabetes mellitus with complication, without long-term current use of insulin Martinez Galindo MD Jul 28, 2016 08:55
[2016-07-28] MEDS ORDERED: ARTIFICIAL TEARS OPTH SOLN 15 ML BTL EACH EYE PRN (09:00)
[2016-07-28] MEDS: MEMANTINE HCL 10 MG TAB PO SCH ×2 (09:28→20:23)
[2016-07-28] MEDS: metFORMIN HCL 500 MG TAB PO SCH ×2 (09:28→18:17)
[2016-07-28] MEDS: BISOPROLOL FUMARATE 5 MG TAB PO SCH (09:28)
[2016-07-28] MEDS: DOXAZOSIN MESYLATE 4 MG TAB PO SCH (09:28)
[2016-07-28] MEDS: ATORVASTATIN 20 MG TAB PO SCH (20:23)
[2016-07-28] MEDS: TAMSULOSIN HCL 0.4 MG CAP PO SCH (20:23)
[2016-07-28] MEDS: DONEPEZIL HCL 5 MG TAB PO SCH (20:23)
[2016-07-29] VITALS (7 sets, daily range): BP systolic 115–160; BP diastolic 73–85; PULSE 57–79; RESP 17–20; TEMP 95.6–97.5; O2SAT 97–99
[2016-07-29] MEDS: INSULIN ASPART SUPPLEMENTAL SCALE SQ SCH ×4 (06:20→20:55)
--- NOTE | 2016-07-29 09:23 | HHI.PR ---
Subjective Remarks nad. no events reported Objective Vitals lying in bed comfortably Vital Signs Date Time Temp Pulse Resp B/P Pulse Ox O2 Delivery O2 Flow Rate FiO2 07/29/16 07:40 96.7 62 17 153/75 97 07/29/16 04:00 96.5 78 20 137/75 98 07/29/16 00:00 96.5 79 20 115/73 98 07/28/16 20:00 97.0 72 20 174/84 97 07/28/16 16:00 96.4 71 19 154/84 100 07/28/16 12:00 95.6 62 18 124/75 98 07/28/16 11:49 68 07/28/16 07/28/16 07/29/16 14:59 22:59 06:59 Intake Total 700 ml 480 ml Balance 700 ml 480 ml Intake Oral 700 ml 480 ml # Voids 4 1 # Bowel Movements 0 Imaging Last Impressions Carotid Artery Ultrasound 07/24/16 0000 Signed Impressions: Service Date/Time: Sunday, July 24, 2016 09:54 - CONCLUSION: Negative for hemodynamically significant stenosis. Federico Alexander MD FACR Brain MRI 07/24/16 0000 Signed Impressions: Service Date/Time: Sunday, July 24, 2016 08:52 - CONCLUSION: Marked central and cortical atrophy with periventricular white matter changes. There is no restricted diffusion to suggest an acute ischemic event. There are multiple punctate areas of hemosiderin seen on the susceptibility weighted images. This can be seen with small old hemorrhagic lacunar infarcts as well as congophilic angiopathy. Federico Alexander MD FACR Head CT 07/23/162049 Signed Impressions: Service Date/Time: Saturday, July 23, 2016 21:05 - CONCLUSION: 1. Cortical atrophy. Chronic white matter ischemic changes. Remote lacunar infarcts in the basal ganglia. Dallin Cordero MD Chest X-Ray 07/23/162049 Signed Impressions: Service Date/Time: Saturday, July 23, 2016 21:13 - CONCLUSION: 1. Tortuous aorta. No active disease. Dallin Cordero MD A/P Problem List: (1) Altered mental status Status: Acute Plan: - concern of possible NPH - Patient has had a decline in his gait in the last 3-4 months - Patient has had incontinence of urine and feces in the last several days - Patient has had a worsening in his mentation - MRI brain ([id number]) - atrophy - Neurology felt that ventricles are prominent - plan is for lumbar drain on Tuesday...npo after MN tonight. - asa/plavix on hold - family was not interested in d/c to snf and readmit -once drain placed will need to observe for sx improvement over 72hrs. - continue namenda & aricept - supportive care - DVT prophylaxis with SCDs (2) Dementia Status: Acute Plan: - see above (3) HTN (hypertension) Status: Chronic Plan: - stable - zebeta (4) BPH (benign prostatic hyperplasia) Status: Chronic Plan: - flomax, cardura (5) DM2 (diabetes mellitus, type 2) Status: Chronic Plan: - SSI - resume metformin Problem Qualifiers (1) Altered mental status: Qualified Code: R41.82 - Altered mental status, unspecified altered mental status type (2) Dementia: Qualified Code: F03.90 - Dementia without behavioral disturbance, unspecified dementia type (3) HTN (hypertension): Qualified Code: I10 - Essential hypertension (4) BPH (benign prostatic hyperplasia): Qualified Code: N40.0 - Benign prostatic hyperplasia, presence of lower urinary tract symptoms unspecified (5) DM2 (diabetes mellitus, type 2): Qualified Code: E11.8 - Type 2 diabetes mellitus with complication, without long-term current use of insulin Martinez Galindo MD Jul 29, 2016 09:23
[2016-07-29] MEDS: MEMANTINE HCL 10 MG TAB PO SCH ×2 (09:52→20:37)
[2016-07-29] MEDS: DOXAZOSIN MESYLATE 4 MG TAB PO SCH (09:52)
[2016-07-29] MEDS: metFORMIN HCL 500 MG TAB PO SCH ×2 (09:52→16:58)
[2016-07-29] MEDS: BISOPROLOL FUMARATE 5 MG TAB PO SCH (09:52)
[2016-07-29] MEDS ORDERED: BISACODYL EC 5 MG TABEC PO PRN (14:30)
[2016-07-29] MEDS ORDERED: DOCUSATE SODIUM 100 MG CAP PO ONE (14:45)
[2016-07-29] MEDS: DONEPEZIL HCL 5 MG TAB PO SCH (20:37)
[2016-07-29] MEDS: DOCUSATE SODIUM 100 MG CAP PO SCH (20:37)
[2016-07-29] MEDS: ATORVASTATIN 20 MG TAB PO SCH (20:38)
[2016-07-29] MEDS: TAMSULOSIN HCL 0.4 MG CAP PO SCH (20:38)
[2016-07-30] VITALS (11 sets, daily range): BP systolic 106–164; BP diastolic 61–87; PULSE 55–79; RESP 18–20; TEMP 95–97.9; O2SAT 92–100
[2016-07-30] MEDS: INSULIN ASPART SUPPLEMENTAL SCALE SQ SCH ×4 (06:11→20:31)
[2016-07-30] MEDS: BISOPROLOL FUMARATE 5 MG TAB PO SCH (09:00)
[2016-07-30] MEDS: DOCUSATE SODIUM 100 MG CAP PO SCH ×2 (09:43→20:30)
[2016-07-30] MEDS: MEMANTINE HCL 10 MG TAB PO SCH ×2 (09:43→20:30)
[2016-07-30] MEDS: DOXAZOSIN MESYLATE 4 MG TAB PO SCH (09:43)
[2016-07-30] MEDS: metFORMIN HCL 500 MG TAB PO SCH ×2 (09:43→17:17)
--- NOTE | 2016-07-30 10:40 | HHI.PR ---
Subjective Remarks no events overnight Objective Vitals heart reg lung cta abd s/nt ext no edema Vital Signs Date Time Temp Pulse Resp B/P Pulse Ox O2 Delivery O2 Flow Rate FiO2 07/30/16 07:58 97.2 76 20 124/73 98 07/30/16 04:00 97.9 64 20 115/61 95 07/30/16 00:00 95.8 69 20 138/87 97 07/29/16 20:00 95.6 68 20 149/85 99 07/29/16 16:10 97.5 73 17 132/75 99 07/29/16 11:58 95.9 73 17 160/77 97 07/29/16 10:41 57 07/29/16 07/29/16 07/30/16 15:00 23:00 07:00 Intake Total 480 ml Balance 480 ml Intake Oral 480 ml # Voids 2 2 # Bowel Movements 0 0 Imaging Last Impressions Carotid Artery Ultrasound 07/24/16 0000 Signed Impressions: Service Date/Time: Sunday, July 24, 2016 09:54 - CONCLUSION: Negative for hemodynamically significant stenosis. Federico Alexander MD FACR Brain MRI 07/24/16 0000 Signed Impressions: Service Date/Time: Sunday, July 24, 2016 08:52 - CONCLUSION: Marked central and cortical atrophy with periventricular white matter changes. There is no restricted diffusion to suggest an acute ischemic event. There are multiple punctate areas of hemosiderin seen on the susceptibility weighted images. This can be seen with small old hemorrhagic lacunar infarcts as well as congophilic angiopathy. Federico Alexander MD FACR Head CT 07/23/162049 Signed Impressions: Service Date/Time: Saturday, July 23, 2016 21:05 - CONCLUSION: 1. Cortical atrophy. Chronic white matter ischemic changes. Remote lacunar infarcts in the basal ganglia. Dallin Cordero MD Chest X-Ray 07/23/162049 Signed Impressions: Service Date/Time: Saturday, July 23, 2016 21:13 - CONCLUSION: 1. Tortuous aorta. No active disease. Dallin Cordero MD A/P Problem List: (1) Altered mental status Status: Acute Plan: - concern of possible NPH - Patient has had a decline in his gait in the last 3-4 months - Patient has had incontinence of urine and feces in the last several days - Patient has had a worsening in his mentation - MRI brain (46466) - atrophy - Neurology felt that ventricles are prominent - plan is for lumbar drain today - asa/plavix on hold - family was not interested in d/c to snf and readmit -once drain placed will need to observe for sx improvement over 72hrs. - continue namenda & aricept - supportive care - DVT prophylaxis with SCDs (2) Dementia Status: Acute Plan: - see above (3) HTN (hypertension) Status: Chronic Plan: - stable - zebeta (4) BPH (benign prostatic hyperplasia) Status: Chronic Plan: - flomax, cardura (5) DM2 (diabetes mellitus, type 2) Status: Chronic Plan: - SSI - resume metformin Problem Qualifiers (1) Altered mental status: Qualified Code: R41.82 - Altered mental status, unspecified altered mental status type (2) Dementia: Qualified Code: F03.90 - Dementia without behavioral disturbance, unspecified dementia type (3) HTN (hypertension): Qualified Code: I10 - Essential hypertension (4) BPH (benign prostatic hyperplasia): Qualified Code: N40.0 - Benign prostatic hyperplasia, presence of lower urinary tract symptoms unspecified (5) DM2 (diabetes mellitus, type 2): Qualified Code: E11.8 - Type 2 diabetes mellitus with complication, without long-term current use of insulin Martinez Galindo MD Jul 30, 2016 10:40
--- NOTE | 2016-07-30 10:47 | HHI.PR ---
Subjective Remarks No acute events overnight. Pt going for lumbar drain placement this afternoon Objective Vitals Vital Signs Date Time Temp Pulse Resp B/P Pulse Ox O2 Delivery O2 Flow Rate FiO2 07/30/16 07:58 97.2 76 20 124/73 98 07/30/16 04:00 97.9 64 20 115/61 95 07/30/16 00:00 95.8 69 20 138/87 97 07/29/16 20:00 95.6 68 20 149/85 99 07/29/16 16:10 97.5 73 17 132/75 99 07/29/16 11:58 95.9 73 17 160/77 97 07/29/16 07/29/16 07/30/16 15:00 23:00 07:00 Intake Total 480 ml Balance 480 ml Intake Oral 480 ml # Voids 2 2 # Bowel Movements 0 0 Imaging Last Impressions Carotid Artery Ultrasound 07/24/16 0000 Signed Impressions: Service Date/Time: Sunday, July 24, 2016 09:54 - CONCLUSION: Negative for hemodynamically significant stenosis. Federico Alexander MD FACR Brain MRI 07/24/16 0000 Signed Impressions: Service Date/Time: Sunday, July 24, 2016 08:52 - CONCLUSION: Marked central and cortical atrophy with periventricular white matter changes. There is no restricted diffusion to suggest an acute ischemic event. There are multiple punctate areas of hemosiderin seen on the susceptibility weighted images. This can be seen with small old hemorrhagic lacunar infarcts as well as congophilic angiopathy. Federico Alexander MD FACR Head CT 07/23/162049 Signed Impressions: Service Date/Time: Saturday, July 23, 2016 21:05 - CONCLUSION: 1. Cortical atrophy. Chronic white matter ischemic changes. Remote lacunar infarcts in the basal ganglia. Dallin Cordero MD Chest X-Ray 07/23/162049 Signed Impressions: Service Date/Time: Saturday, July 23, 2016 21:13 - CONCLUSION: 1. Tortuous aorta. No active disease. Dallin Cordero MD Objective Remarks General: NAD Chest: CTA Cardiac: Regular Abd: +BS, soft nondistended Ext: No edema A/P Problem List: (1) Altered mental status Status: Acute Plan: - concern of possible NPH - Patient has had a decline in his gait in the last 3-4 months - Patient has had incontinence of urine and feces in the last several days - Patient has had a worsening in his mentation - MRI brain ([id number]) - atrophy - Neurology felt that ventricles are prominent - plan is for lumbar drain today - asa/plavix on hold - family was not interested in d/c to snf and readmit - Will need to observe over the weekend for sx improvement over 72hrs after drain placed. - continue Namenda & Aricept - supportive care - DVT prophylaxis with SCDs (2) Dementia Status: Acute Plan: - see above (3) HTN (hypertension) Status: Chronic Plan: - stable - zebeta (4) BPH (benign prostatic hyperplasia) Status: Chronic Plan: - flomax, cardura (5) DM2 (diabetes mellitus, type 2) Status: Chronic Plan: - SSI - resume metformin Problem Qualifiers (1) Altered mental status: Qualified Code: R41.82 - Altered mental status, unspecified altered mental status type (2) Dementia: Qualified Code: F03.90 - Dementia without behavioral disturbance, unspecified dementia type (3) HTN (hypertension): Qualified Code: I10 - Essential hypertension (4) BPH (benign prostatic hyperplasia): Qualified Code: N40.0 - Benign prostatic hyperplasia, presence of lower urinary tract symptoms unspecified (5) DM2 (diabetes mellitus, type 2): Qualified Code: E11.8 - Type 2 diabetes mellitus with complication, without long-term current use of insulin Yue Childs Jul 30, 2016 10:46
[2016-07-30 11:42] LABS: BICARBONATE 28.6 MEQ/L (21.0-32.0); MAGNESIUM 1.8 MG/DL (1.5-2.5); POTASSIUM 3.7 MEQ/L (3.5-5.1)
[2016-07-30] MEDS ORDERED: MIDAZOLAM HCL 5 MG/5 ML VIAL ONE (13:30)
[2016-07-30] MEDS ORDERED: fentaNYL CITRATE 250 MCG/5 ML AMP ONE (13:30)
[2016-07-30] MEDS ORDERED: ceFAZolin 2 GM PREMIX 50 ML ONE (13:55)
--- NOTE | 2016-07-30 14:10 | PD.RAD ---
Post Procedure Progress Note Pre Procedure Diagnosis: (1) Dementia (2) Altered mental status Post Procedure Diagnosis: (1) Dementia (2) Altered mental status Procedure Date: Jul 30, 2016 Supervising Radiologist: Sp Alexander Estimated blood loss: 1cc Anesthesia: Local, Conscious Sedation Plan of Activity Patient to Unit: ROPU Patient Condition: Fair Additional Comments: Lumbar drain completed without difficulty Catheter tip at T11 Clear CSF See PACS Report for procedural detail/treatment Sp Alexander MD Jul 30, 2016 14:10
--- NOTE | 2016-07-30 15:33 | RADRPT ---
EXAM DATE/TIME: 07/30/2016 13:49 [facility] COMPARISON: No previous studies available for comparison. INDICATIONS : Patient with possible normal pressure hydrocephalus in need of lumbar drain placement. MEDICAL HISTORY : 1.Hypertension 2. Diabetes type II 3. CVA 4.Dementia 5.BPH SURGIAL HISTORY : 1.Bilateral cataract surgery 2. Cardiac stent placement ENCOUNTER: Initial ACUITY: 1 week PAIN SCORE: 0/10 LUMBAR PUNCTURE TIME: 1357 hours FLUORO TIME: 1.7 minutes IMAGE SERIES: 0 SEDATION TIME: 30 minutes LEVEL: Tip of lumbar drain was placed at T11 MEDICATION(S): 1.) 1.5 mg midazolam (Versed) IV 2.) 75 mcg fentanyl (Sublimaze) IV Vancomycin within 2 hrs of procedure, Ancef (or alternative) within 1 hr of procedure. DEVICE(S): 1.) 5 Yoruba lumbar drain catheter PROCEDURE : 1. Fluoroscopically guided lumbar drain placement. 2. Conscious sedation with continuous EKG and oximetry monitoring. The risks, benefits and alternatives to the procedure were explained and verbal and written consent w as obtained. The site was prepped in sterile fashion. Full sterile technique was used, including ca p, mask, sterile gloves and gown and a large sterile sheet. Hand hygiene and 2% chlorhexidine and/or betadine/alcohol prep was utilized per protocol for cutaneous antisepsis. The skin and subcutaneous tissues were infiltrated with local anesthetic solution. With fluoroscopic guidance the lumbar thecal sac was punctured with a 14 gauge Touhy needle and a lum bar drain was placed with its tip at the level as described above and the catheter was sutured in nancy ce. CSF was identified returning from the catheter at the termination of the procedure. Conscious sedation was performed with the prescribed dosages and duration as above in the presence of an independent trained radiology nurse to assist in the monitoring of the patient. EKG and oximetry remained stable throughout the procedure. The patient tolerated the procedure well and there were n o complications. The patient was sent to post anesthesia recovery in stable condition. CONCLUSION: Uncomplicated lumbar drain placement as above. Sp Alexander MD on July 30, 2016 at 15:31 Board Certified Radiologist. This report was verified electronically.
--- NOTE | 2016-07-30 17:01 | HHI.NSPN ---
History Interval History 71-year-old gentleman with a history of multiple strokes as well as progressive dementia, unsteadiness in his gait and incontinence. His MRI scan of the brain and clinical features are also suggestive of normal pressure hydrocephalus and he had a lumbar spinal drain placed by interventional radiology today. Discussed with his son who is an ER physician in [facility]. Exam Results Vital Signs Date Time Temp Pulse Resp B/P Pulse Ox O2 Delivery O2 Flow Rate FiO2 07/30/16 16:12 95.0 64 20 135/75 100 Intake and Output 07/29/16 07/29/16 07/30/16 08:00 16:00 00:00 Intake Total 480 ml Balance 480 ml Physical Examination GENERAL: Well-nourished, well-developed patient. SKIN: Warm and dry. HEAD: Normocephalic and atraumatic. EYES: No scleral icterus. No injection or drainage. ENT: No nasal drainage noted. Mucous membranes pink. Airway patent. NECK: Supple, trachea midline. No JVD. CARDIOVASCULAR: Regular rate and rhythm without murmurs, gallops, or rubs. RESPIRATORY: Breath sounds equal bilaterally. No accessory muscle use. GASTROINTESTINAL: Abdomen soft, non-tender, nondistended. EXTREMITIES: No cyanosis or edema. BACK: Nontender without obvious deformity. Lumbar spinal drain in place draining clear CSF. NEUROLOGICAL: Awake and alert. Pupils Equal and reactive. EOMI. Face symmetric. Tongue midline. Cranial nerves II through XII intact. Motor and sensory grossly within normal limits. Five out of 5 muscle strength in all muscle groups. Negative Babinski. Lab, Micro, Other Results Laboratory Tests Test 07/30/16 10:41 Sodium Level 140 Potassium Level 3.7 Chloride Level 102 Carbon Dioxide Level 28.6 Anion Gap 9 Blood Urea Nitrogen 16 Creatinine 1.19 Estimat Glomerular Filtration 60 Rate Random Glucose 168 Calcium Level 9.4 Magnesium Level 1.8 Medical Decision Making Impression and Plan 71-year-old gentleman who is currently undergoing evaluation for normal pressure hydrocephalus with temporary lumbar spinal drain placed today. Continue with the spinal drain over the weekend and can be removed a Tuesday morning and subsequently discharged to a assisted home as per the son's preference. Follow-up in the office in 2 weeks to assess response to the temporary drainage and evaluate whether he would be candidate for a PROPERTY DISPOSAL [employer]ICER shunt placement if there is significant improvement noted in his symptoms. Updated the son and family at bedside. Breezy Amin MD Jul 30, 2016 17:01
[2016-07-30] MEDS: TAMSULOSIN HCL 0.4 MG CAP PO SCH (20:30)
[2016-07-30] MEDS: ATORVASTATIN 20 MG TAB PO SCH (20:31)
[2016-07-30] MEDS: DONEPEZIL HCL 5 MG TAB PO SCH (20:31)
[2016-07-31] VITALS (7 sets, daily range): BP systolic 105–156; BP diastolic 62–78; PULSE 61–87; RESP 17–20; TEMP 96.2–97; O2SAT 96–99
[2016-07-31] MEDS: INSULIN ASPART SUPPLEMENTAL SCALE SQ SCH ×4 (05:38→21:00)
[2016-07-31] MEDS: DOCUSATE SODIUM 100 MG CAP PO SCH ×2 (09:00→21:53)
[2016-07-31] MEDS: DOXAZOSIN MESYLATE 4 MG TAB PO SCH (09:36)
[2016-07-31] MEDS: MEMANTINE HCL 10 MG TAB PO SCH ×2 (09:36→21:52)
[2016-07-31] MEDS: metFORMIN HCL 500 MG TAB PO SCH ×2 (09:36→18:28)
[2016-07-31] MEDS: BISOPROLOL FUMARATE 5 MG TAB PO SCH (09:36)
--- NOTE | 2016-07-31 14:55 | HHI.PR ---
Subjective Remarks stable. son at bedside Objective Vitals nad on edge bed. Vital Signs Date Time Temp Pulse Resp B/P Pulse Ox O2 Delivery O2 Flow Rate FiO2 07/31/16 12:04 96.6 68 18 120/65 99 07/31/16 08:12 96.5 71 18 118/62 98 07/31/16 04:00 96.8 78 18 105/65 96 07/31/16 00:00 97.0 87 20 148/78 97 07/30/16 20:00 77 07/30/16 20:00 96.4 79 18 164/76 98 07/30/16 16:12 95.0 64 20 135/75 100 07/30/16 15:30 59 18 128/74 94 07/30/16 15:00 55 18 119/72 95 07/30/16 07/30/16 07/31/16 15:00 23:00 07:00 Output Total 100 ml 50 ml Balance -100 ml -50 ml Drainage Total 100 ml 50 ml # Voids 6 # Bowel Movements 1 Result Diagram: 07/30/16 1041 Imaging Last Impressions Carotid Artery Ultrasound 07/24/16 0000 Signed Impressions: Service Date/Time: Sunday, July 24, 2016 09:54 - CONCLUSION: Negative for hemodynamically significant stenosis. Federico Alexander MD FACR Brain MRI 07/24/16 0000 Signed Impressions: Service Date/Time: Sunday, July 24, 2016 08:52 - CONCLUSION: Marked central and cortical atrophy with periventricular white matter changes. There is no restricted diffusion to suggest an acute ischemic event. There are multiple punctate areas of hemosiderin seen on the susceptibility weighted images. This can be seen with small old hemorrhagic lacunar infarcts as well as congophilic angiopathy. Federico Alexander MD FACR Head CT 07/23/162049 Signed Impressions: Service Date/Time: Saturday, July 23, 2016 21:05 - CONCLUSION: 1. Cortical atrophy. Chronic white matter ischemic changes. Remote lacunar infarcts in the basal ganglia. Dallin Cordero MD Chest X-Ray 07/23/162049 Signed Impressions: Service Date/Time: Saturday, July 23, 2016 21:13 - CONCLUSION: 1. Tortuous aorta. No active disease. Dallin Cordero MD A/P Problem List: (1) Altered mental status Status: Acute Plan: - concern of possible NPH - Patient has had a decline in his gait in the last 3-4 months - Patient has had incontinence of urine and feces in the last several days - Patient has had a worsening in his mentation - MRI brain (37252) - atrophy - Neurology felt that ventricles are prominent - Lumbar drain placed 07/30 - asa/plavix on hold - Will need to observe over the weekend for sx improvement over 72hrs after drain placed. - continue Namenda & Aricept - supportive care - DVT prophylaxis with SCDs Long talk with son. we reviewed his medications, labs,vitals, mri. He would like to stop the bph meds at d/c and try kaitlynn but cautiously given hx orthostasis. He would like [facility] for next week.. (2) Dementia Status: Acute Plan: - see above (3) HTN (hypertension) Status: Chronic Plan: - stable - zebeta (4) BPH (benign prostatic hyperplasia) Status: Chronic Plan: - flomax, cardura (5) DM2 (diabetes mellitus, type 2) Status: Chronic Plan: - SSI - resume metformin Problem Qualifiers (1) Altered mental status: Qualified Code: R41.82 - Altered mental status, unspecified altered mental status type (2) Dementia: Qualified Code: F03.90 - Dementia without behavioral disturbance, unspecified dementia type (3) HTN (hypertension): Qualified Code: I10 - Essential hypertension (4) BPH (benign prostatic hyperplasia): Qualified Code: N40.0 - Benign prostatic hyperplasia, presence of lower urinary tract symptoms unspecified (5) DM2 (diabetes mellitus, type 2): Qualified Code: E11.8 - Type 2 diabetes mellitus with complication, without long-term current use of insulin Martinez Galindo MD Jul 31, 2016 14:55
[2016-07-31] MEDS: ATORVASTATIN 20 MG TAB PO SCH (21:52)
[2016-07-31] MEDS: DONEPEZIL HCL 5 MG TAB PO SCH (21:52)
[2016-08-01] VITALS (8 sets, daily range): BP systolic 120–161; BP diastolic 68–82; PULSE 64–76; RESP 16–18; TEMP 96–96.9; O2SAT 96–98
[2016-08-01] MEDS: INSULIN ASPART SUPPLEMENTAL SCALE SQ SCH ×4 (06:29→20:34)
[2016-08-01] MEDS: DOCUSATE SODIUM 100 MG CAP PO SCH ×2 (09:00→20:28)
[2016-08-01] MEDS: metFORMIN HCL 500 MG TAB PO SCH ×2 (09:05→17:34)
[2016-08-01] MEDS: BISOPROLOL FUMARATE 5 MG TAB PO SCH (09:05)
[2016-08-01] MEDS: MEMANTINE HCL 10 MG TAB PO SCH ×2 (09:05→20:29)
[2016-08-01 09:22] LABS: AUTOMATED NEUTROPHIL # 2.4 TH/MM3 (1.8-7.7); BASOPHIL # 0.1 TH/MM3 (0-0.2); BASOPHIL % 1.1 % (0.0-2.0); EOSINOPHIL # 0.3 TH/MM3 (0-0.4); EOSINOPHIL % 4.8 % (0.0-4.0); HEMATOCRIT 38.5 % (39.0-51.0); HEMO FLAGS DIFF FINAL; LYMPH % 37.4 % (9.0-44.0); MEAN CELL VOLUME 83.8 FL (80.0-100.0); MEAN CORPUSCULAR HEMOGLOBIN 27.1 PG (27.0-34.0); MEAN CORPUSCULAR HGB CONC 32.3 % (32.0-36.0); MONO % 11.7 % (0.0-8.0); PLATELET COUNT 165 TH/MM3 (150-450); RED BLOOD COUNT 4.59 MIL/MM3 (4.50-5.90); RED CELL DISTRIBUTION WIDTH 14.5 % (11.6-17.2); WHITE BLOOD COUNT 5.2 TH/MM3 (4.0-11.0)
[2016-08-01 09:47] LABS: BICARBONATE 25.5 MEQ/L (21.0-32.0); POTASSIUM 3.5 MEQ/L (3.5-5.1)
--- NOTE | 2016-08-01 10:41 | RADRPT ---
EXAM DATE/TIME: 08/01/2016 10:30 [facility] COMPARISON: CT BRAIN W/O CONTRAST, July 23, 2016, 21:05. INDICATIONS : Altered mental status. RADIATION DOSE: 34.55 CTDIvol (mGy) MEDICAL HISTORY : Hypertension. Dementia. Stroke 1990,2003,2015 SURGICAL HISTORY : None. ENCOUNTER: Initial ACUITY: 1 day PAIN SCALE: 0/10 LOCATION: cranial TECHNIQUE: Multiple contiguous axial images were obtained of the head. Using automated exposure control and adj ustment of the mA and/or kV according to patient size, radiation dose was kept as low as reasonably a chievable to obtain optimal diagnostic quality images. FINDINGS: There is cortical volume loss and chronic white matter ischemic changes with lacunar infarcts in the basal ganglia. No significant change from July 23. No recent infarct identified. No mass effect or mid line shift. CONCLUSION: 1. Chronic ischemic changes in the white matter and remote lacunar infarcts basal ganglia. No change from prior study. Dallin Cordero MD on August 01, 2016 at 10:37 Board Certified Radiologist. This report was verified electronically.
--- NOTE | 2016-08-01 13:40 | HHI.PR ---
Subjective Remarks pt reportedly has some confusion yesterday evening and saying things that made no sense per family. Today he appears in no distress. He follows my commands Objective Vitals lying in bed no facial droop moves all 4 ext and no new sign of weakness heart reg lung cta abd s/nt/nabs ext no edema lumbar drain Vital Signs Date Time Temp Pulse Resp B/P Pulse Ox O2 Delivery O2 Flow Rate FiO2 08/01/16 12:00 96.6 71 18 150/68 97 08/01/16 11:50 65 08/01/16 08:00 96.0 76 16 146/80 98 08/01/16 04:31 96.6 66 17 126/71 96 08/01/16 00:21 96.9 65 17 120/70 97 07/31/16 22:00 65 07/31/16 20:10 96.6 61 17 156/76 99 07/31/16 16:01 96.2 66 18 147/71 98 07/31/16 07/31/16 08/01/16 15:00 23:00 07:00 Intake Total 360 ml 360 ml Output Total 80 ml 55 ml Balance 280 ml -55 ml 360 ml Intake Oral 360 ml 360 ml Drainage Total 80 ml 55 ml # Voids 4 2 # Bowel Movements 1 Result Diagram: 08/01/1681808/01/16818 Imaging Last Impressions Carotid Artery Ultrasound 07/24/16 0000 Signed Impressions: Service Date/Time: Sunday, July 24, 2016 09:54 - CONCLUSION: Negative for hemodynamically significant stenosis. Federico Alexander MD FACR Brain MRI 07/24/16 0000 Signed Impressions: Service Date/Time: Sunday, July 24, 2016 08:52 - CONCLUSION: Marked central and cortical atrophy with periventricular white matter changes. There is no restricted diffusion to suggest an acute ischemic event. There are multiple punctate areas of hemosiderin seen on the susceptibility weighted images. This can be seen with small old hemorrhagic lacunar infarcts as well as congophilic angiopathy. Federico Alexander MD FACR Head CT 07/23/162049 Signed Impressions: Service Date/Time: Saturday, July 23, 2016 21:05 - CONCLUSION: 1. Cortical atrophy. Chronic white matter ischemic changes. Remote lacunar infarcts in the basal ganglia. Dallin Cordero MD Chest X-Ray 07/23/162049 Signed Impressions: Service Date/Time: Saturday, July 23, 2016 21:13 - CONCLUSION: 1. Tortuous aorta. No active disease. Dallin Cordero MD A/P Problem List: (1) Altered mental status Status: Acute Plan: - concern of possible NPH - Patient has had a decline in his gait in the last 3-4 months - Patient has had incontinence of urine and feces - Patient has had a worsening in his mentation - MRI brain ([id number]) - atrophy - Neurology felt that ventricles are prominent - Lumbar drain placed 07/30 - asa/plavix on hold - continue Namenda & Aricept -Long talk with pt son who is ED physician. He wants to stop the medication that was started in [place]. stop Imiprimine, flomax and cardura as he says it has made no difference. He reports issus with orthostatic hypotension in past but would like to start a low dose kaitlynn for bp control given his dm. - Will need to observe over the weekend for sx improvement over 72hrs after drain placed. Then he can go to snf for further PT.Family would like [facility] as there is a therapist who can communicate with him at [facility]. - DVT prophylaxis with SCDs Long talk with pt daughter in law over the phone..We discussed the concern over his confusion last night. family requested urinalysis, repeat blood work and a CT brain today. f/u these studies. PT daily to assess gain Plan for Lumbar drain removal tomorrow. (2) Dementia Status: Acute Plan: - see above (3) HTN (hypertension) Status: Chronic Plan: - stable - zebeta (4) BPH (benign prostatic hyperplasia) Status: Chronic Plan: -see above (5) DM2 (diabetes mellitus, type 2) Status: Chronic Plan: - SSI - resume metformin Problem Qualifiers (1) Altered mental status: Qualified Code: R41.82 - Altered mental status, unspecified altered mental status type (2) Dementia: Qualified Code: F03.90 - Dementia without behavioral disturbance, unspecified dementia type (3) HTN (hypertension): Qualified Code: I10 - Essential hypertension (4) BPH (benign prostatic hyperplasia): Qualified Code: N40.0 - Benign prostatic hyperplasia, presence of lower urinary tract symptoms unspecified (5) DM2 (diabetes mellitus, type 2): Qualified Code: E11.8 - Type 2 diabetes mellitus with complication, without long-term current use of insulin Martinez Galindo MD Aug 01, 2016 13:40
[2016-08-01] MEDS ORDERED: POTASSIUM CHLORIDE 20 MEQ CONTROLLED RELEASE TAB PO ONE (13:45)
[2016-08-01] MEDS ORDERED: PILL SPLITTER OTHER PRN (14:00)
[2016-08-01 16:35] LABS: BLOOD, URINE NEG (NEG); COMMENT (UR) CULT NOT INDICATED; CULTURE IF INDICATED CULT NOT INDICATED; GLUCOSE,URINE NEG (NEG); KETONE, URINE NEG (NEG); MUCUS URINE FEW /lpf (OCC); NITRITE,URINE NEG (NEG); PH, URINE 7.5 (5.0-8.5); URINE COLOR YELLOW (YELLW/STRAW)
[2016-08-01] MEDS: DONEPEZIL HCL 5 MG TAB PO SCH (20:28)
[2016-08-01] MEDS: ATORVASTATIN 20 MG TAB PO SCH (20:28)
[2016-08-02] VITALS (7 sets, daily range): BP systolic 123–146; BP diastolic 64–86; PULSE 56–72; RESP 16–20; TEMP 95.7–96.9; O2SAT 96–98
[2016-08-02] MEDS: INSULIN ASPART SUPPLEMENTAL SCALE SQ SCH ×4 (06:44→20:11)
[2016-08-02] MEDS: DOCUSATE SODIUM 100 MG CAP PO SCH ×2 (08:54→20:09)
[2016-08-02] MEDS: MEMANTINE HCL 10 MG TAB PO SCH ×2 (08:55→20:08)
[2016-08-02] MEDS: BISOPROLOL FUMARATE 5 MG TAB PO SCH (08:55)
[2016-08-02] MEDS: LISINOPRIL 5 MG TAB PO SCH (08:55)
[2016-08-02] MEDS: metFORMIN HCL 500 MG TAB PO SCH ×2 (08:55→18:08)
--- NOTE | 2016-08-02 13:29 | HHI.PR ---
Subjective Remarks Pt had lumbar drain removed today Objective Vitals Vital Signs Date Time Temp Pulse Resp B/P Pulse Ox O2 Delivery O2 Flow Rate FiO2 08/02/16 12:19 96.5 72 20 137/64 96 08/02/16 09:42 57 08/02/16 08:19 95.7 56 20 123/67 98 08/02/16 04:00 96.1 70 18 133/68 97 08/02/16 00:00 96.7 67 16 140/78 96 08/01/16 21:00 67 08/01/16 20:00 96.4 64 16 161/82 98 08/01/16 16:00 96.3 69 18 152/81 98 08/01/16 08/01/16 08/02/16 15:00 23:00 07:00 Intake Total 440 ml 240 ml Output Total 55 ml Balance 440 ml -55 ml 240 ml Intake Oral 440 ml 240 ml Drainage Total 55 ml # Voids 1 2 # Bowel Movements 0 Result Diagram: 08/01/1619 08/01/1619 Other Results Laboratory Tests Test 08/01/16 08/01/16 08:19 12:45 White Blood Count 5.2 TH/MM3 Red Blood Count 4.59 MIL/MM3 Hemoglobin 12.4 GM/DL Hematocrit 38.5 % Mean Corpuscular Volume 83.8 FL Mean Corpuscular Hemoglobin 27.1 PG Mean Corpuscular Hemoglobin 32.3 % Concent Red Cell Distribution Width 14.5 % Platelet Count 165 TH/MM3 Mean Platelet Volume 9.0 FL Neutrophils (%) (Auto) 45.0 % Lymphocytes (%) (Auto) 37.4 % Monocytes (%) (Auto) 11.7 % Eosinophils (%) (Auto) 4.8 % Basophils (%) (Auto) 1.1 % Neutrophils # (Auto) 2.4 TH/MM3 Lymphocytes # (Auto) 2.0 TH/MM3 Monocytes # (Auto) 0.6 TH/MM3 Eosinophils # (Auto) 0.3 TH/MM3 Basophils # (Auto) 0.1 TH/MM3 CBC Comment DIFF FINAL Differential Comment Sodium Level 139 MEQ/L Potassium Level 3.5 MEQ/L Chloride Level 106 MEQ/L Carbon Dioxide Level 25.5 MEQ/L Anion Gap 8 MEQ/L Blood Urea Nitrogen 17 MG/DL Creatinine 0.98 MG/DL Estimat Glomerular Filtration 76 ML/MIN Rate Random Glucose 110 MG/DL Calcium Level 9.0 MG/DL Urine Color YELLOW Urine Turbidity CLEAR Urine pH 7.5 Urine Specific [place] 1.012 Urine Protein NEG mg/dL Urine Glucose (UA) NEG mg/dL Urine Ketones NEG mg/dL Urine Occult Blood NEG Urine Nitrite NEG Urine Bilirubin NEG Urine Urobilinogen 2.0 MG/DL Urine Leukocyte Esterase NEG Urine RBC LESS THAN 1 /hpf Urine WBC LESS THAN 1 /hpf Urine Mucus FEW /lpf Microscopic Urinalysis Comment CULT NOT INDICATED Imaging Last Impressions Head CT 08/01/16 0000 Signed Impressions: Service Date/Time: Monday, August 01, 2016 10:30 - CONCLUSION: 1. Chronic ischemic changes in the white matter and remote lacunar infarcts basal ganglia. No change from prior study. Dallin Cordero MD Lumbar Puncture Fluoroscopy 07/30/16 0000 Signed Impressions: Service Date/Time: Saturday, July 30, 2016 13:49 - CONCLUSION: Uncomplicated lumbar drain placement as above. Sp Alexander MD Carotid Artery Ultrasound 07/24/16 Signed Impressions: Service Date/Time: Sunday, July 24, 2016 09:54 - CONCLUSION: Negative for hemodynamically significant stenosis. Federico Alexander MD FACR Brain MRI 07/24/16 Signed Impressions: Service Date/Time: Sunday, July 24, 2016 08:52 - CONCLUSION: Marked central and cortical atrophy with periventricular white matter changes. There is no restricted diffusion to suggest an acute ischemic event. There are multiple punctate areas of hemosiderin seen on the susceptibility weighted images. This can be seen with small old hemorrhagic lacunar infarcts as well as congophilic angiopathy. Federico Alexander MD FACR Chest X-Ray 07/23/162049 Signed Impressions: Service Date/Time: Saturday, July 23, 2016 21:13 - CONCLUSION: 1. Tortuous aorta. No active disease. Dallin Cordero MD Last Impressions Carotid Artery Ultrasound 07/24/16 Signed Impressions: Service Date/Time: Sunday, July 24, 2016 09:54 - CONCLUSION: Negative for hemodynamically significant stenosis. Federico Alexander MD FACR Brain MRI 07/24/16 0000 Signed Impressions: Service Date/Time: Sunday, July 24, 2016 08:52 - CONCLUSION: Marked central and cortical atrophy with periventricular white matter changes. There is no restricted diffusion to suggest an acute ischemic event. There are multiple punctate areas of hemosiderin seen on the susceptibility weighted images. This can be seen with small old hemorrhagic lacunar infarcts as well as congophilic angiopathy. Federico Alexander MD FACR Head CT 07/23/162049 Signed Impressions: Service Date/Time: Saturday, July 23, 2016 21:05 - CONCLUSION: 1. Cortical atrophy. Chronic white matter ischemic changes. Remote lacunar infarcts in the basal ganglia. Dallin Cordero MD Chest X-Ray 07/23/162049 Signed Impressions: Service Date/Time: Saturday, July 23, 2016 21:13 - CONCLUSION: 1. Tortuous aorta. No active disease. Dallin Cordero MD Objective Remarks General: NAD Chest: CTA Cardiac: Regular Abd: +BS, soft ND/NT Ext: No edema A/P Problem List: (1) Altered mental status Status: Acute Plan: - concern of possible NPH - Patient has had a decline in his gait in the last 3-4 months - Patient has had incontinence of urine and feces - Patient has had a worsening in his mentation - MRI brain (03308) - atrophy - Neurology felt that ventricles are prominent - Lumbar drain placed 07/30 - asa/Plavix on hold - continue Namenda & Aricept - Dr. Galindo previously discussed the case with the pt son who is ED physician. He wanted to stop the medication that was started in [place] --> stop Imiprimine, Flomax and Cardura as he says it has made no difference. He reports issues with orthostatic hypotension in past but would like to start a low dose NASH for bp control given his DM. - Pt had some issues over the weekend with mild confusion. UA was negative. Head CT was negative for any acute changes. - Lumbar drain removed this morning. - He will need SNF placement for further PT. Family would like [facility] as there is a therapist who can communicate with him at [facility]. - Pt will need to followup with Dr. Amin in 2 weeks for re-evaluation to see if the lumbar drainage helped and if so then proceed with possible VPS placement. - DVT prophylaxis with SCDs (2) Dementia Status: Acute Plan: - see above (3) HTN (hypertension) Status: Chronic Plan: - stable - zebeta (4) BPH (benign prostatic hyperplasia) Status: Chronic Plan: -see above (5) DM2 (diabetes mellitus, type 2) Status: Chronic Plan: - SSI - resume metformin Assessment and Plan Patient examined. Assessment and plan formulated with Yue Childs PA-C. I agree with the above. Problem Qualifiers (1) Altered mental status: Qualified Code: R41.82 - Altered mental status, unspecified altered mental status type (2) Dementia: Qualified Code: F03.90 - Dementia without behavioral disturbance, unspecified dementia type (3) HTN (hypertension): Qualified Code: I10 - Essential hypertension (4) BPH (benign prostatic hyperplasia): Qualified Code: N40.0 - Benign prostatic hyperplasia, presence of lower urinary tract symptoms unspecified (5) DM2 (diabetes mellitus, type 2): Qualified Code: E11.8 - Type 2 diabetes mellitus with complication, without long-term current use of insulin Yue Childs Aug 02, 2016 13:29 Oseas Watson DO Aug 03, 2016 10:07
--- NOTE | 2016-08-02 18:27 | HHI.NSPN ---
(Gerry Rao) History Chief Complaint: difficulty with ambulation and urinary incontinence. (Gerry Rao) Interval History 71-year-old gentleman with a history of multiple strokes as well as progressive dementia, unsteadiness in his gait and incontinence. His MRI scan of the brain and clinical features are also suggestive of normal pressure hydrocephalus and he had a lumbar spinal drain placed by interventional radiology today. Discussed with his son who is an ER physician in [facility]. 08/02/16: Discussed with son at bedside states that he has not noticed any significant improvement in his gait or urinary incontinence. Patient's lumbar spinal drain is to be removed today. (Gerry Rao) Review of Systems General: Negative for: fever, chills, insomnia Respiratory: Negative for: shortness of breath, cough, sputum Cardiovascular: Negative for: chest pain Gastrointestinal: Negative for: nausea, vomitting, diarrhea, constipation ( Gerry Rao) Exam Results Vital Signs Date Time Temp Pulse Resp B/P Pulse Ox O2 Delivery O2 Flow Rate FiO2 08/02/16 16:18 96.9 70 20 146/77 97 Intake and Output 08/01/16 08/01/16 08/02/16 08:00 16:00 00:00 Intake Total 360 ml 440 ml Output Total 55 ml Balance 360 ml 440 ml -55 ml (Gerry Rao) Physical Examination GENERAL: Well-nourished, well-developed patient. SKIN: Warm and dry. HEAD: Normocephalic and atraumatic. EYES: No scleral icterus. No injection or drainage. ENT: No nasal drainage noted. Mucous membranes pink. Airway patent. NECK: Supple, trachea midline. No JVD. CARDIOVASCULAR: Regular rate and rhythm without murmurs, gallops, or rubs. RESPIRATORY: Breath sounds equal bilaterally. No accessory muscle use. GASTROINTESTINAL: Abdomen soft, non-tender, nondistended. EXTREMITIES: No cyanosis or edema. BACK: Nontender without obvious deformity. Lumbar spinal drain in place clamped. NEUROLOGICAL: Awake and alert. Pupils Equal and reactive. MUSCULOSKELETAL. Motor and sensory grossly within normal limits. Five out of 5 muscle strength in all muscle groups. i. (Gerry Rao) Lab, Micro, Other Results Last Impressions Head CT 08/01/16 0000 Signed Impressions: Service Date/Time: Monday, August 01, 2016 10:30 - CONCLUSION: 1. Chronic ischemic changes in the white matter and remote lacunar infarcts basal ganglia. No change from prior study. Dallin Cordero MD Lumbar Puncture Fluoroscopy 07/30/16 0000 Signed Impressions: Service Date/Time: Saturday, July 30, 2016 13:49 - CONCLUSION: Uncomplicated lumbar drain placement as above. Sp Alexander MD Carotid Artery Ultrasound 07/24/16 0000 Signed Impressions: Service Date/Time: Sunday, July 24, 2016 09:54 - CONCLUSION: Negative for hemodynamically significant stenosis. Federico Alexander MD FACR Brain MRI 07/24/16 0000 Signed Impressions: Service Date/Time: Sunday, July 24, 2016 08:52 - CONCLUSION: Marked central and cortical atrophy with periventricular white matter changes. There is no restricted diffusion to suggest an acute ischemic event. There are multiple punctate areas of hemosiderin seen on the susceptibility weighted images. This can be seen with small old hemorrhagic lacunar infarcts as well as congophilic angiopathy. Federico Alexander MD FACR Chest X-Ray 07/23/162049 Signed Impressions: Service Date/Time: Saturday, July 23, 2016 21:13 - CONCLUSION: 1. Tortuous aorta. No active disease. Dallin Cordero MD 08/01/16 08/01/16 08/02/16 15:00 23:00 07:00 Intake Total 440 ml 240 ml Output Total 55 ml Balance 440 ml -55 ml 240 ml Intake Oral 440 ml 240 ml Drainage Total 55 ml # Voids 1 2 # Bowel Movements 0 (Gerry Rao) Medical Decision Making Impression and Plan A: 71-year-old gentleman who is currently undergoing evaluation for normal pressure hydrocephalus with temporary lumbar spinal drain in place. Pts son states he has not noticed an improvement in his gait or urinary incontinence. P: Lumbar spinal drain was removed and steri strip placed. He will follow-up in the office in 2 weeks to assess response to the temporary drainage and evaluate whether he would be candidate for a VEHICLE MECH[employer]IC shunt placement if there is significant improvement noted in his symptoms. Updated the son and family at bedside. They are very appreciative of care provided. (Gerry Rao) Attending Statement The exam, history, and the medical decision-making described in the above note were completed with the assistance of the mid-level provider. I reviewed and agree with the findings presented. I attest that I had a [id number] encounter with the patient on the same day, and personally performed and documented my assessment and findings in the medical record. (Breezy Amin MD) Gerry Rao Aug 02, 2016 18:27 Breezy Amin MD Aug 02, 2016 19:09
[2016-08-02] MEDS: DONEPEZIL HCL 5 MG TAB PO SCH (20:08)
[2016-08-02] MEDS: ATORVASTATIN 20 MG TAB PO SCH (20:08)
[2016-08-03 00:16] VITALS: BP 136/79; PULSE 71; RESP 17; TEMP 96.6; O2SAT 96
[2016-08-03 05:19] VITALS: BP 130/75; PULSE 69; RESP 18; TEMP 96.9; O2SAT 98
[2016-08-03] MEDS: INSULIN ASPART SUPPLEMENTAL SCALE SQ SCH ×2 (05:56→11:00)
[2016-08-03 08:13] VITALS: PULSE 53
[2016-08-03 08:23] VITALS: BP 140/63; PULSE 57; RESP 20; TEMP 96.7; O2SAT 98
[2016-08-03] MEDS: BISOPROLOL FUMARATE 5 MG TAB PO SCH (09:44)
[2016-08-03] MEDS: DOCUSATE SODIUM 100 MG CAP PO SCH (09:48)
[2016-08-03] MEDS: metFORMIN HCL 500 MG TAB PO SCH (09:49)
[2016-08-03] MEDS: MEMANTINE HCL 10 MG TAB PO SCH (09:49)
[2016-08-03] MEDS: LISINOPRIL 5 MG TAB PO SCH (09:49)
--- NOTE | 2016-08-03 10:06 | HHI.DCPOC ---
Discharge Care Plan Diagnosis: (1) Altered mental status (2) Dementia (3) DM2 (diabetes mellitus, type 2) (4) BPH (benign prostatic hyperplasia) (5) HTN (hypertension) Goals to Promote Your Health * To prevent worsening of your condition and complications * To maintain your health at the optimal level Directions to Meet Your Goals Take your medications as prescribed Follow your dietary instruction Follow activity as directed Keep your appointments as scheduled Take your immunizations and boosters as scheduled If your symptoms worsen call your PCP, if no PCP go to Urgent Care Center or Emergency Room Smoking is Dangerous to Your Health. Avoid second hand smoke Call the 24-hour hour crisis hotline for domestic abuse at Oseas Watson DO Aug 03, 2016 10:06
--- NOTE | 2016-08-03 10:18 | HHI.DS ---
Discharge Summary Admission Date Jul 28, 2016 at 10:28 Discharge Date: Aug 03, 2016 Admitting Diagnosis Altered mental status (1) Altered mental status Diagnosis: Principal (2) Dementia Diagnosis: Principal (3) HTN (hypertension) Diagnosis: Secondary (4) BPH (benign prostatic hyperplasia) Diagnosis: Secondary (5) DM2 (diabetes mellitus, type 2) Diagnosis: Secondary Brief History Patient is a pleasant 71-year-old male originally from [place], who speaks primarily Khmer. History was obtained with the help of a friend who was in the room. I also spoke with his son by phone, who is an ER physician. The patient has a history of dementia and previous CVA. However, family reports that for the last 3-4 months he has had a deterioration in his gait. His gait starts normal and then worsens to a shuffle at times. He has also been falling frequently at home. He also has been experiencing incontinence of urine and feces for the last several days. There has also been a worsening of his mentation. Per family, patient has had decreased appetite and weight loss in the last 6 months with his weight decreasing from 165 pounds to now 148 pounds. Son is worried about the possibility of normal pressure hydrocephalus. CBC/BMP: 08/01/16 0819 08/01/16 0819 Significant Findings Laboratory Tests Test 08/01/16 08/01/16 08:19 12:45 Hemoglobin 12.4 GM/DL (13.0-17.0) Hematocrit 38.5 % (39.0-51.0) Monocytes (%) (Auto) 11.7 % (0.0-8.0) Eosinophils (%) (Auto) 4.8 % (0.0-4.0) Estimat Glomerular Filtration 76 ML/MIN (>89) Rate Random Glucose 110 MG/DL (74-106) Urine Mucus FEW /lpf (OCC) PE at Discharge General: NAD Chest: CTA Cardiac: Regular Abd: +BS, soft ND/NT Ext: No edema Hospital Course (1) Altered mental status Status: Acute Plan: - concern of possible NPH - Patient has had a decline in his gait in the last 3-4 months - Patient has had incontinence of urine and feces - Patient has had a worsening in his mentation - MRI brain (68275) - atrophy - Neurology felt that ventricles are prominent - Lumbar drain placed 07/30 and removed 08/02 - asa/Plavix on hold - continue Namenda & Aricept - Dr. Galindo previously discussed the case with the pt son who is ED physician. He wanted to stop the medication that was started in [place] --> stop Imiprimine, Flomax and Cardura as he says it has made no difference. He reports issues with orthostatic hypotension in past but would like to start a low dose NASH for bp control given his DM. - Pt had some issues the weekend prior to discharge with mild confusion. UA was negative. Head CT was negative for any acute changes. - Case d/w Neurosurgery service (08/03/16), so far pt does NOT seem to have had any improvement with the lumbar drain - Pt will need to followup with Dr. Amin in 2 weeks for re-evaluation to see if the lumbar drainage helped and if so then proceed with possible VPS placement. - He will need SNF placement for further PT. Family would like [facility] as there is a therapist who can communicate with him at [facility]. (2) Dementia Status: Acute Plan: - see above (3) HTN (hypertension) Status: Chronic Plan: - stable - zebeta (4) BPH (benign prostatic hyperplasia) Status: Chronic Plan: -see above (5) DM2 (diabetes mellitus, type 2) Status: Chronic Plan: - SSI - metformin Pt Condition on Discharge: Stable Discharge Disposition: Discharge to SNF Discharge Instructions DIET: Follow Instructions for: Heart Healthy Diet Speech Therapy-Diet Recommends: Regular Activities you can perform: Weight Bearing as Cecilia Follow up Referrals: Neurology - 4 Weeks with Víctor Rucker PhD, MD Neurosurgery - 2 Weeks with Breezy Amin MD PCP Follow-up - [address] Filemon Lilly Continued Medications: Atorvastatin (Atorvastatin) 20 Mg Tab 20 MG PO HS Cholesterol Management #30 Ref 0 TAB Bisoprolol (Bisoprolol) 5 Mg Tab 5 MG PO DAILY Blood Pressure Management #30 Ref 0 TAB Donepezil (Donepezil) 10 Mg Tab 10 MG PO HS Dementia #30 Ref 0 TAB Memantine (Memantine) 10 Mg Tab 10 MG PO BID Alzheimer's Dementia Ref 0 TAB Metformin (Metformin) 500 Mg Tab 500 MG PO BIDPC With meals Blood Sugar Management #60 Ref 0 TAB Discontinued Medications: Clopidogrel (Clopidogrel) 75 Mg Tab 75 MG PO DAILY Blood Clot Prevention #30 Ref 0 TAB Doxazosin (Doxazosin) 4 Mg Tab 4 MG PO DAILY #30 Ref 0 TAB Tamsulosin (Tamsulosin) 0.4 Mg Cap 0.4 MG PO HS Manage Prostate Problems #30 Ref 0 CAP Oseas Watson DO Aug 03, 2016 10:18
[2016-08-03] MEDS ORDERED: PLAV75TA29 PO (12:02)
[2016-08-03] MEDS ORDERED: ASPI81TA11 PO (12:02)
[2016-08-03] MEDS ORDERED: LISI-519 PO (12:02)
[2016-08-03] MEDS ORDERED: TAMS5CAP PO (12:02)
[2016-08-03 12:43] VITALS: BP 138/67; PULSE 64; RESP 18; TEMP 97; O2SAT 99
== END 2016-08-03 12:56 | DRG 57 ==
LOC: NEPE 20:12 → NEDA 23:08 → UNDOADMIN 23:08 → NEDA 23:16 → INTOOBSV 23:16 → NEDA 07-24 00:16 → N05A 07-24 00:16 → OBSVTOIN 07-28 10:28
PROVIDERS: ADMIT Hospitalist; ATTEND Hospitalist
PROC: 009U30Z Drainage of Spinal Canal with Drainage Device, Percutaneous Approach (ICD-10-PCS; principal; 2016-07-30)
DX: G91.2 (Idiopathic) normal pressure hydrocephalus (principal); F03.90 Unspecified dementia, unspecified severity, without behavioral disturbance, psychotic disturbance, mood disturbance, and anxiety; E11.9 Type 2 diabetes mellitus without complications; I10 Essential (primary) hypertension; Z86.73 Personal history of transient ischemic attack (TIA), and cerebral infarction without residual deficits; Z79.84 Long term (current) use of oral hypoglycemic drugs; N40.0 Benign prostatic hyperplasia without lower urinary tract symptoms
CPT/HCPCS: 63741; 70450; 70551; 71010; 77003; 80048; 80053; 81001; 82140; 82550; 82607; 82746; 82948; 83735; 84439; 84443; 84484; 85025; 85610; 85730; 86038; 86592; 93005; 93880; 96360; 99152; 99153; C1755; G0378; J0690; J1815; J2250; J3010; J7040

== ENCOUNTER → 2016-11-03 | Outpatient (CLI) | payer OTHER ==
[~2016-11-03] VITALS: Ht 165.1 cm; Wt 61.7 kg
[~2016-11-03] MED LIST: ASPI81TA11 PO; ATOR20TA15 PO; BISO5TAB5 PO; CHLORHEXIDINE GLUCONATE 2 % 1 PACK (2 CLOTHS) TOPICAL PRN; DETR2TAB PO; DONE10TA7 PO; INSULIN HUMAN REGULAR 1,000 UNITS/10 ML VIAL SQ PRN; LACTATED RINGER'S 1000 ML IV PRN; LISI-519 PO; MEMA1TAB2 PO; METF500T PO; METOPROLOL TARTRATE 25 MG TAB PO PRN; PLAV75TA29 PO; POVIDONE IODINE 5% (ANTISEPSIS KIT) 4 APPLICATIONS EACH NARE PRN; PROPOFOL 200 MG/20 ML AMP IV PUSH ONE; SODIUM CHLORID 0.9% 500 ML IV PRN; TAMS5CAP PO
[2016-11-03 11:44] VITALS: BP 130/69; PULSE 51; RESP 16; O2SAT 97
--- NOTE | 2016-11-03 11:45 | PD.PROCEDR ---
GI Procedure REFERRING PHYSICIAN Dr. Lilly PROCEDURE PERFORMED EGD followed by colonoscopy INDICATION FOR PROCEDURE Chronic constipation, loss of appetite, weight loss, PROCEDURE: The procedure, risks and benefits were discussed with Mr. Farmer and informed consent was obtained. Anesthesia sedated him with Diprivan. He was placed in the left lateral decubitus position. EGD: The Pentax videoscope was introduced through the oropharynx and advanced to the second portion of the duodenum under direct visualization. Retroflexion was performed in the stomach. FINDINGS: The esophagus this was normal The stomach this was normal The duodenum this was normal Colonoscopy: The Pentax videoscope was introduced through the rectum and advanced to cecum where the ileocecal valve and appendiceal orifice were identified. Retroflexion was performed in the rectum. Colonic prep was very good FINDINGS: Colonic withdrawal time greater than 6 minutes. As the scope was slowly withdrawn colonic mucosa was carefully inspected this was noted to be unremarkable and within normal limits hallway through so was retroflexion and rectal examination ESTIMATED BLOOD LOSS: None SPECIMENS REMOVED: None COMPLICATIONS: None IMPRESSION: Normal EGD Normal colonoscopy PLAN: Follow up in clinic in 3-[address] of the abdomen and pelvis with contrast to further evaluate for weight loss and loss of appetite Roman Terrell MD Nov 03, 2016 11:45
== END ==
LOC: HSDC 08:45
PROVIDERS: ATTEND Internal Medicine Gastroenterology
DX: K59.00 Constipation, unspecified (principal); F50.89 Other specified eating disorder; R63.4 Abnormal weight loss